=== PATIENT | male | born 1980 | race Caucasian/White ===

== ENCOUNTER 2017-06-23 09:48 | Inpatient (IN) | payer OTHER ==
[2017-06-23] MEDS ORDERED: ACETAMINOPHEN IV (For NPO) 1,000 MG in EMPTY BAG 1 BAG IVPB STA (10:19)
[2017-06-23] MEDS ORDERED: RX INFO: IV CONTRAST WAS GIVEN 1 EACH MISC MISCELLANE PRN (10:20)
--- NOTE | 2017-06-23 10:24 | ED ---
General Adult HPI - General Chief complaint: Fever Stated complaint: abd pain Time Seen by Provider: 06/23/17 10:15 Source: patient, family, RN notes reviewed Mode of arrival: ambulatory Limitations: no limitations - History of Present Illness Initial comments: Patient is a pleasant 36-year-old male presenting to the emergency department with fever. Fever started today. Patient has had headache for the past several days however headache is similar to his chronic migraines. Patient has had previous evaluation for this including computed tomography scan. Patient states this is a chronic problem for him. Patient does admit to having abdominal discomfort for the past few days. Abdominal discomfort is new. Patient has had nausea with emesis approximately 5 times, no emesis today. No constipation or diarrhea. No dysuria or hematuria. Abdominal discomfort is mostly the lower abdomen. Patient was given Motrin around 1 hour ago by [facility]. - Related Data Home Medications Medication Instructions Recorded Confirmed Citalopram Hydrobromide 40 mg PO DAILY 06/23/17 06/23/17 [Citalopram HBr] Gabapentin [Neurontin] 800 mg PO TID 06/23/17 06/23/17 Multivitamins, Thera [Multivitamin 1 tab PO DAILY 06/23/17 06/23/17 (formulary)] Pantoprazole [Protonix] 40 mg PO BID 06/23/17 06/23/17 busPIRone HCl [Buspar] 5 mg PO BID 06/23/17 06/23/17 Allergies Allergy/AdvReac Type Severity Reaction Status Date / Time Penicillins Allergy Unknown Verified 06/23/17 11:31 Review of Systems ROS Statement: Those systems with pertinent positive or pertinent negative responses have been documented in the HPI. ROS Other: All systems not noted in ROS Statement are negative. Constitutional: Reports: fever, chills Eyes: Denies: eye pain ENT: Denies: ear pain Respiratory: Denies: cough, dyspnea Cardiovascular: Denies: chest pain, palpitations Endocrine: Reports: fatigue Gastrointestinal: Reports: abdominal pain, nausea, vomiting. Denies: diarrhea, constipation Genitourinary: Reports: frequency. Denies: dysuria, hematuria Musculoskeletal: Denies: back pain Skin: Denies: rash Neurological: Denies: weakness Past Medical History Past Medical History: No Reported History History of Any Multi-Drug Resistant Organisms: None Reported Past Surgical History: Appendectomy, Orthopedic Surgery Additional Past Surgical History / Comment(s): right knee Past Psychological History: Anxiety, Depression, PTSD Smoking Status: Current every day smoker Past Alcohol Use History: Abuse Past Drug Use History: Marijuana General Exam Limitations: no limitations General appearance: alert, in no apparent distress Head exam: Present: atraumatic Eye exam: Present: normal appearance, PERRL ENT exam: Present: normal oropharynx Neck exam: Present: normal inspection Respiratory exam: Present: normal lung sounds bilaterally Cardiovascular Exam: Present: tachycardia GI/Abdominal exam: Present: soft, tenderness (Mild to moderate diffuse tenderness with some guarding), guarding, normal bowel sounds. Absent: distended, rebound, rigid, pulsatile mass Extremities exam: Present: normal inspection Neurological exam: Present: alert Psychiatric exam: Present: normal affect, normal mood Skin exam: Present: normal color Course Vital Signs 06/23/17 06/23/17 06/23/17 09:50 10:05 10:20 Temperature 103.1 F H Pulse Rate 112 H 105 H 104 H Respiratory 20 18 16 Rate Blood Pressure 119/80 127/77 129/74 O2 Sat by Pulse 98 95 95 Oximetry 06/23/17 06/23/17 10:35 10:50 Temperature 100.1 F H Pulse Rate 98 94 Respiratory 16 18 Rate Blood Pressure 131/71 127/65 O2 Sat by Pulse 95 96 Oximetry - Reevaluation(s) Reevaluation #1: 06/23/17 11:42 Patient does meet sepsis criteria diagnosed at 11:42 AM. Lactic acid was ordered. Blood cultures were ordered. IV antibiotics and fluid boluses have been ordered. Medical Decision Making - Medical Decision Making Patient reevaluated and resting comfortably in bed. Patient still has a abdominal tenderness, diffuse. Computed tomography scan shows no acute process. Patient does have evidence of pneumonia which can count for septic state. This could also be causing abdominal discomfort. Secondary to continued discomfort surgery will be consult. Dr. Parisi has been paged for admission for Dr. Vaca. Patient and family were updated on results and plan. - Lab Data Result diagrams: 06/23/17 10:19 06/23/17 10:19 Lab Results 06/23/17 06/23/17 06/23/17 Range/Units 10:19 10:19 10:19 WBC 21.7 H (3.8-10.6) k/uL RBC 4.72 (4.30-5.90) m/uL Hgb 14.8 (13.0-17.5) gm/dL Hct 42.3 (39.0-53.0) % MCV 89.6 (80.0-100.0) fL MCH 31.4 (25.0-35.0) pg MCHC 35.1 (31.0-37.0) g/dL RDW 12.9 (11.5-15.5) % Plt Count 204 (150-450) k/uL Neutrophils % 87 % Lymphocytes % 7 % Monocytes % 3 % Eosinophils % 2 % Basophils % 0 % Neutrophils # 18.9 H (1.3-7.7) k/uL Lymphocytes # 1.6 (1.0-4.8) k/uL Monocytes # 0.6 (0-1.0) k/uL Eosinophils # 0.3 (0-0.7) k/uL Basophils # 0.1 (0-0.2) k/uL PT (9.0-12.0) sec INR (<1.2) APTT (22.0-30.0) sec Sodium 131 L (137-145) mmol/L Potassium 4.1 (3.5-5.1) mmol/L Chloride 94 L (98-107) mmol/L Carbon Dioxide 22 (22-30) mmol/L Anion Gap 15 mmol/L BUN 14 (9-20) mg/dL Creatinine 1.00 (0.66-1.25) mg/dL Est GFR (MDRD) Af Amer >60 (>60 ml/min/1.73 sqM) Est GFR (MDRD) Non-Af >60 (>60 ml/min/1.73 sqM) Glucose 138 H (74-99) mg/dL Plasma Lactic Acid Riky 0.9 (0.7-2.0) mmol/L Calcium 9.2 (8.4-10.2) mg/dL Total Bilirubin 0.7 (0.2-1.3) mg/dL AST 23 (17-59) U/L ALT 39 (21-72) U/L Alkaline Phosphatase 90 (38-126) U/L Total Protein 7.2 (6.3-8.2) g/dL Albumin 4.2 (3.5-5.0) g/dL Urine Color Urine Appearance (Clear) Urine pH (5.0-8.0) Ur Specific [place] (1.001-1.035) Urine Protein (Negative) Urine Glucose (UA) (Negative) Urine Ketones (Negative) Urine Blood (Negative) Urine Nitrite (Negative) Urine Bilirubin (Negative) Urine Urobilinogen (<2.0) mg/dL Ur Leukocyte Esterase (Negative) 06/23/17 06/23/17 Range/Units 10:19 11:39 WBC (3.8-10.6) k/uL RBC (4.30-5.90) m/uL Hgb (13.0-17.5) gm/dL Hct (39.0-53.0) % MCV (80.0-100.0) fL MCH (25.0-35.0) pg MCHC (31.0-37.0) g/dL RDW (11.5-15.5) % Plt Count (150-450) k/uL Neutrophils % % Lymphocytes % % Monocytes % % Eosinophils % % Basophils % % Neutrophils # (1.3-7.7) k/uL Lymphocytes # (1.0-4.8) k/uL Monocytes # (0-1.0) k/uL Eosinophils # (0-0.7) k/uL Basophils # (0-0.2) k/uL PT 11.4 (9.0-12.0) sec INR 1.1 (<1.2) APTT 33.6 H (22.0-30.0) sec Sodium (137-145) mmol/L Potassium (3.5-5.1) mmol/L Chloride (98-107) mmol/L Carbon Dioxide (22-30) mmol/L Anion Gap mmol/L BUN (9-20) mg/dL Creatinine (0.66-1.25) mg/dL Est GFR (MDRD) Af Amer (>60 ml/min/1.73 sqM) Est GFR (MDRD) Non-Af (>60 ml/min/1.73 sqM) Glucose (74-99) mg/dL Plasma Lactic Acid Riky (0.7-2.0) mmol/L Calcium (8.4-10.2) mg/dL Total Bilirubin (0.2-1.3) mg/dL AST (17-59) U/L ALT (21-72) U/L Alkaline Phosphatase (38-126) U/L Total Protein (6.3-8.2) g/dL Albumin (3.5-5.0) g/dL Urine Color Light Yellow Urine Appearance Clear (Clear) Urine pH 6.5 (5.0-8.0) Ur Specific [place] 1.013 (1.001-1.035) Urine Protein Negative (Negative) Urine Glucose (UA) Negative (Negative) Urine Ketones Negative (Negative) Urine Blood Negative (Negative) Urine Nitrite Negative (Negative) Urine Bilirubin Negative (Negative) Urine Urobilinogen <2.0 (<2.0) mg/dL Ur Leukocyte Esterase Negative (Negative) - Radiology Data Radiology results: report reviewed (Computed tomography scan of the abdomen pelvis shows no acute process), image reviewed (Chest x-ray shows left upper lobe infiltrate) Critical Care Time Critical Care Time: Yes Total Critical Care Time: 32 Disposition Clinical Impression: Pneumonia, Sepsis Disposition: ADMITTED IP TO THIS [facility] Referrals: Jadon Rodriguez DO [Primary Care Provider] - 1-2 days Decision Time: 12:22
[2017-06-23] MEDS: SODIUM CHLORIDE 0.9% 500 ML IV SCH ×3 (10:26→10:52)
[2017-06-23 10:29] LABS: Basophils # (A) 0.1 k/uL (0-0.2); Basophils % (A) 0 %; CH 31.4; CHCM 35.2; Eosinophils # (A) 0.3 k/uL (0-0.7); Eosinophils % (A) 2 %; HCT 42.3 % (39.0-53.0); HDW 2.38; HGB 14.8 gm/dL (13.0-17.5); Luc % (Auto) 1; Lymphocytes # (A) 1.6 k/uL (1.0-4.8); Lymphocytes % (A) 7 %; MCH 31.4 pg (25.0-35.0); MCHC 35.1 g/dL (31.0-37.0); MCV 89.6 fL (80.0-100.0); Mean Platelet Volume 7.4; Monocytes # (A) 0.6 k/uL (0-1.0); Monocytes % (A) 3 %; Neutrophils # (A) 18.9 k/uL (1.3-7.7); Neutrophils % (A) 87 %; RBC 4.72 m/uL (4.30-5.90); RDW 12.9 % (11.5-15.5); WBC 21.7 k/uL (3.8-10.6); WBC (Perox) 20.76
[2017-06-23 10:37] LABS: INR 1.1 (<1.2); Partial Thromboplastin Time 33.6 sec (22.0-30.0); Prothrombin Time 11.4 sec (9.0-12.0)
[2017-06-23 10:40] LABS: ALT 39 U/L (21-72); AST 23 U/L (17-59); Alkaline Phosphatase 90 U/L (38-126); Anion Gap 15 mmol/L; Blood Urea Nitrogen 14 mg/dL (9-20); Calcium 9.2 mg/dL (8.4-10.2); Carbon Dioxide 22 mmol/L (22-30); Chloride 94 mmol/L (98-107); Glucose 138 mg/dL (74-99); Non-African American GFR(MDRD) >60 (>60 ml/min/1.73 sqM); Potassium 4.1 mmol/L (3.5-5.1); Sodium 131 mmol/L (137-145); Total Bilirubin 0.7 mg/dL (0.2-1.3); Total Protein 7.2 g/dL (6.3-8.2)
--- NOTE | 2017-06-23 11:22 | XR ---
EXAMINATION TYPE: XR chest 2V DATE OF EXAM: 06/23/2017 COMPARISON: NONE HISTORY: Fever, abdominal pain and lethargy TECHNIQUE: Frontal and lateral views of the chest are obtained. FINDINGS: There is airspace disease in the left upper lobe, no pleural effusion, or pneumothorax see n. The cardiac silhouette size is within normal limits. The osseous structures are intact. IMPRESSION: Left upper lobe pneumonia, follow-up to resolution to exclude mass.
--- NOTE | 2017-06-23 11:24 | CT ---
EXAMINATION TYPE: CT abdomen pelvis w con DATE OF EXAM: 06/23/2017 COMPARISON: NONE HISTORY: pelvic pain with fever CT DLP: 651.9 mGycm Automated exposure control for dose reduction was used. TECHNIQUE: Helical acquisition of images from the lung bases through the pelvis have been completed. CONTRAST: Performed without Oral Contrast and with IV Contrast, patient injected with 100 mL of Omnipaque 300. FINDINGS: LUNG BASES: No significant abnormality is appreciated. AORTA: No significant abnormality is appreciated. LIVER/GB: Low dense focus in the posterior right lobe towards the dome measures 1 cm in size and stat istically is likely to represent a cyst, gallbladder is unremarkable. PANCREAS: No significant abnormality is seen. SPLEEN: No significant abnormality is seen. ADRENALS: No significant abnormality is seen. KIDNEYS: No significant abnormality is seen. REPRODUCTIVE ORGANS: No significant abnormality is seen BOWEL: No significant abnormality is seen. FREE AIR: No Free Air visible. ASCITES: None visible. PELVIC ADENOPATHY: None visualized. RETROPERITONEAL ADENOPATHY: No Retroperitoneal Adenopathy visible. URINARY BLADDER: No significant abnormality is seen. OSSEOUS STRUCTURES: No significant abnormality is seen. IMPRESSION: NO ABNORMALITY EVIDENT TO ACCOUNT FOR PATIENT'S SYMPTOMS.
[2017-06-23] MEDS ORDERED: LEVOFLOXACIN 750MG-D5W PMX 750 MG in DEXTROSE/WATER 1 150ML.BAG IVPB STA (11:41)
[2017-06-23] MEDS ORDERED: AZTREONAM 2 GM in SODIUM CHLORIDE 0.9% 100 ML IVPB STA (11:41)
[2017-06-23] MEDS ORDERED: SODIUM CHLORIDE 0.9% 250 ML IV STA (11:41)
[2017-06-23] MEDS ORDERED: PNEUMONIA PROTOCOL UTILIZED 1 EACH MISC PO PRN (11:41)
[2017-06-23 11:57] LABS: Appearance,Urine Clear (Clear); Bilirubin,Urine Negative (Negative); Glucose,Urine (UA) Negative (Negative); Ketones,Urine Negative (Negative); Leukocyte Esterase,Urine Negative (Negative); Nitrite,Urine Negative (Negative); PH, Urine 6.5 (5.0-8.0); Protein,Urine Negative (Negative); Specific Gravity,Urine 1.013 (1.001-1.035); UA Billing (MACRO vs. MICRO) CHEM; Urobilinogen,Urine <2.0 mg/dL (<2.0)
[2017-06-23] MEDS ORDERED: NALOXONE 0.4 MG/ML 1 ML VIAL IV PRN (12:22)
[2017-06-23] MEDS ORDERED: THIAMINE 100 MG/ML 2 ML VIAL IM STA (12:43)
[2017-06-23] MEDS ORDERED: LORazepam 2 MG/ML SYRINGE IV PRN ×3 (12:43)
[2017-06-23] MEDS: SODIUM CHLORIDE 0.9% 1,000 ML IV SCH ×2 (13:22→20:57)
[2017-06-23 13:34] VITALS: BMI 25.0
[2017-06-23] MEDS ORDERED: HYDROmorphone 1 MG/ML 1 ML SYRINGE IVP PRN (15:16)
[2017-06-23] MEDS: GABAPENTIN 400 MG CAP PO SCH ×2 (15:57→20:58)
[2017-06-23] MEDS: PANTOPRAZOLE 40 MG TABLET PO SCH (15:58)
[2017-06-23] MEDS ORDERED: PNEUMOCOCCAL VACC-PNEUMOVAX 23 25 MCG/0.5 ML VIAL IM ONE (16:00)
[2017-06-23] MEDS: THIAMINE 100 MG TAB PO SCH (16:01)
--- NOTE | 2017-06-23 16:03 | P.GSCN ---
History of Present Illness Consult date: 06/23/17 Reason for Consult: abdominal pain History of present illness: 4 to clinic character moderate to severe made worse by moving about and coughing. It is associated by worsening cough nausea and vomiting with settled. There is a loss of appetite. No history of diarrhea or constipation. No history of hematemesis hematochezia or melena. No shave acholic stools no history of weight loss. He is unable to keep food down he is a loss of appetite. He has not had any such pain in the past. The pain does not radiate or shift. Review of Systems - Constitutional Reports anorexia, Reports chills, Reports fever, Reports malaise - EENT Eyes: denies blurred vision - Cardiovascular Denies claudication, Denies decreased exercise tolerance, Denies dyspnea on exertion - Respiratory Reports cough, Reports dyspnea - Gastrointestinal Reports as per HPI, Reports abdominal pain - Genitourinary Denies dysuria - Musculoskeletal Denies arm numbness/tingling, Denies fractures - Integumentary Denies acne, Denies boils, Denies brittle nails - Neurological Denies aphasia, Denies ataxia - Psychiatric Denies anhedonia, Denies anxiety - Endocrine Denies cold intolerance, Denies deepening of the voice, Denies excessive sweating - Hematologic/Lymphatic Denies easy bleeding, Denies easy bruising - Allergic/Immunologic Denies allergic rhinitis, Denies anaphylaxis Past Medical History Past Medical History: No Reported History History of Any Multi-Drug Resistant Organisms: None Reported Past Surgical History: Appendectomy, Orthopedic Surgery Additional Past Surgical History / Comment(s): right knee Past Anesthesia/Blood Transfusion Reactions: No Reported Reaction Past Psychological History: Anxiety, Depression, PTSD Smoking Status: Current every day smoker Past Alcohol Use History: Abuse Additional Past Alcohol Use History / Comment(s): attends AA, requests no narcotics on D/C Past Drug Use History: Marijuana - Past Family History Father Family Medical History: Liver Disease Medications and Allergies Home Medications Medication Instructions Recorded Confirmed Type Citalopram Hydrobromide 40 mg PO DAILY 06/23/17 06/23/17 History [Citalopram HBr] Gabapentin [Neurontin] 800 mg PO TID 06/23/17 06/23/17 History Multivitamins, Thera [Multivitamin 1 tab PO DAILY 06/23/17 06/23/17 History (formulary)] Pantoprazole [Protonix] 40 mg PO BID 06/23/17 06/23/17 History busPIRone HCl [Buspar] 5 mg PO BID 06/23/17 06/23/17 History Allergies Allergy/AdvReac Type Severity Reaction Status Date / Time Penicillins Allergy Unknown Verified 06/23/17 11:31 Surgical - Exam Vital Signs Temp Pulse Resp BP Pulse Ox 103.1 F H 112 H 20 119/80 98 06/23/17 09:50 06/23/17 09:50 06/23/17 09:50 06/23/17 09:50 06/23/17 09:50 Results - Labs 06/23/17 10:19 06/23/17 10:19 Abnormal Lab Results - Last 24 Hours (Table) 06/23/17 06/23/17 06/23/17 Range/Units 10:19 10:19 10:19 WBC 21.7 H (3.8-10.6) k/uL Neutrophils # 18.9 H (1.3-7.7) k/uL APTT 33.6 H (22.0-30.0) sec Sodium 131 L (137-145) mmol/L Chloride 94 L (98-107) mmol/L Glucose 138 H (74-99) mg/dL Diabetes panel 06/23/17 Range/Units 10:19 Sodium 131 L (137-145) mmol/L Potassium 4.1 (3.5-5.1) mmol/L Chloride 94 L (98-107) mmol/L Carbon Dioxide 22 (22-30) mmol/L BUN 14 (9-20) mg/dL Creatinine 1.00 (0.66-1.25) mg/dL Glucose 138 H (74-99) mg/dL Calcium 9.2 (8.4-10.2) mg/dL AST 23 (17-59) U/L ALT 39 (21-72) U/L Alkaline Phosphatase 90 (38-126) U/L Total Protein 7.2 (6.3-8.2) g/dL Albumin 4.2 (3.5-5.0) g/dL Calcium panel 06/23/17 Range/Units 10:19 Calcium 9.2 (8.4-10.2) mg/dL Albumin 4.2 (3.5-5.0) g/dL Pituitary panel 06/23/17 Range/Units 10:19 Sodium 131 L (137-145) mmol/L Potassium 4.1 (3.5-5.1) mmol/L Chloride 94 L (98-107) mmol/L Carbon Dioxide 22 (22-30) mmol/L BUN 14 (9-20) mg/dL Creatinine 1.00 (0.66-1.25) mg/dL Glucose 138 H (74-99) mg/dL Calcium 9.2 (8.4-10.2) mg/dL Adrenal panel 06/23/17 Range/Units 10:19 Sodium 131 L (137-145) mmol/L Potassium 4.1 (3.5-5.1) mmol/L Chloride 94 L (98-107) mmol/L Carbon Dioxide 22 (22-30) mmol/L BUN 14 (9-20) mg/dL Creatinine 1.00 (0.66-1.25) mg/dL Glucose 138 H (74-99) mg/dL Calcium 9.2 (8.4-10.2) mg/dL Total Bilirubin 0.7 (0.2-1.3) mg/dL AST 23 (17-59) U/L ALT 39 (21-72) U/L Alkaline Phosphatase 90 (38-126) U/L Total Protein 7.2 (6.3-8.2) g/dL Albumin 4.2 (3.5-5.0) g/dL - Imaging Additional studies: CT scan of abd and pevlis is normal, an d the CXR show left upper lobe pneumonia Assessment and Plan (1) Abdominal pain Status: Acute (2) Pneumonia Status: Acute (3) Sepsis Status: Acute Plan: Patient is 69-year-old male who presented with abdominal pain. His labs and chest x-ray suggest pneumonia with possible sepsis secondary to that. His abdominal pain is nonspecific. Although his abdomen is tender do not believe there is any guarding rebound or tenderness. No masses or hernias appreciated. At this time I do not believe his abdominal pain is surgical in origin. I will continue to follow the patient with you thank you very much for consult
[2017-06-23] MEDS: AZTREONAM 2 GM in SODIUM CHLORIDE 0.9% 100 ML IVPB SCH ×2 (17:13→23:34)
--- NOTE | 2017-06-23 17:58 | HP ---
CHIEF COMPLAINT: Fever, abdominal pain, cough. HISTORY OF PRESENT ILLNESS: This is a 36-year-old gentleman with a past medical history of significant medical problems including history of binge drinking, EtOH history, anxiety, depression, PTSD; being followed by Dr. Rodriguez in the outpatient setting. He is complaining of recurrent fever for the last several days. The patient also complains of vague diffuse abdominal pain. The patient also had some cough also. The patient also has history of headache. Patient came to [facility] and admitted for further evaluation and treatment. The patient also had some vomiting. The patient's chest x-ray showed evidence of left-sided pneumonia. There is no history of any hematochezia or melena at this time. PAST MEDICAL HISTORY: History of appendectomy, DJD, history of anxiety of depression, PTSD. MEDICATIONS: 1. BuSpar 5 mg p.o. b.i.d. 2. Protonix 40 mg b.i.d. 3. Multivitamins. 4. Neurontin 800 mg t.i.d. 5. Celexa 40 mg a day. ALLERGIES: PENICILLIN. FAMILY HISTORY: History of liver disease in the family. SOCIAL HISTORY: History of smoking, alcohol and THC. REVIEW OF SYSTEMS: ENT: No diminished hearing or vision. CARDIOVASCULAR: No angina or palpitation. RESPIRATORY: As mentioned earlier. GI: As mentioned earlier. : No dysuria. NERVOUS SYSTEM: No numbness or weakness. IMMUNOLOGY/ALLERGY: No asthma, hayfever. MUSCULOSKELETAL: As mentioned earlier. HEMATOLOGY: No history of anemia. ENDOCRINE: No history of diabetes or hypothyroidism. CONSTITUTIONAL: Negative PSYCHIATRIC: As mentioned earlier. PHYSICAL EXAMINATION: Alert and oriented x3. Pulse 76, blood pressure 105/61, respirations 19, temperature 96.7, pulse ox 98% on 2 liters. HEENT: Conjunctivae normal. Oral mucosa moist. NECK: No jugular venous distention. No thyroid enlargement, no lymph node enlargement. CARDIOVASCULAR: S1/.S2. RESPIRATIONS: Diminished breath sounds at the bases. A few scattered rhonchi and crackles. Expiratory wheezing also present. ABDOMEN: Soft, nontender. No mass palpable. LEGS: No edema, no swelling. NERVOUS SYSTEM: Higher function as mentioned. Moves all four limbs. No focal weakness. LYMPHATICS. No lymph node palpable in neck or axillae. SKIN: No rash. LABS: WBC 21.2, hemoglobin 14.8, sodium 131, chloride 94, glucose 138. Chest x -ray noted. ASSESSMENT: 1. Acute left upper lobe pneumonia, possibly aspiration, possibly gram negative sepsis. 2. Abdominal pain, most likely due to gastritis. 3. Increased WBC. 4. Hyponatremia. 5. History of EtOH. 6. History of degenerative joint disease. 7. Anxiety, depression and posttraumatic stress disorder. 8. History of nicotine dependence. 9. History of THC. RECOMMENDATION AND DISCUSSION: This 36-year-old gentleman presented with multiple complex medical issues. We will monitor the patient closely, continue the current medication, continue symptomatic treatment. Otherwise, I recommend bronchodilators, empiric antibiotics, cultures. We will recommend pulmonary consultation. Surgery has also been consulted. Guarded prognosis because of multiple complex medical issues. See orders. MTDD
[2017-06-23] MEDS: IPRATROPIUM-ALBUTEROL 3 ML NEB INHALATION SCH (19:40)
[2017-06-23] MEDS: ACETAMINOPHEN TAB 325 MG TAB PO PRN (19:49)
[2017-06-23] MEDS: busPIRone HCl 5 MG TAB PO SCH (20:58)
[2017-06-23] MEDS: FAMOTIDINE 20 MG TAB PO SCH (20:58)
[2017-06-23] MEDS: HEPARIN SODIUM,PORCINE 5,000 UNIT/ML 1 ML VIAL SQ SCH (20:59)
[2017-06-23] MEDS: TEMAZEPAM 15 MG CAP PO PRN (20:59)
[2017-06-24] MEDS: IBUPROFEN 400 MG TAB PO PRN ×3 (00:16→22:16)
[2017-06-24] MEDS: ACETAMINOPHEN TAB 325 MG TAB PO PRN (06:39)
[2017-06-24] MEDS: SODIUM CHLORIDE 0.9% 1,000 ML IV SCH ×2 (06:41→16:30)
[2017-06-24] MEDS: IPRATROPIUM-ALBUTEROL 3 ML NEB INHALATION SCH ×3 (07:35→20:56)
[2017-06-24] MEDS: NICOTINE 14MG/24HR PATCH TRANSDERM SCH (08:15)
[2017-06-24] MEDS: HEPARIN SODIUM,PORCINE 5,000 UNIT/ML 1 ML VIAL SQ SCH ×2 (08:15→21:16)
[2017-06-24] MEDS: PANTOPRAZOLE 40 MG TABLET PO SCH ×2 (08:15→16:29)
[2017-06-24] MEDS: FAMOTIDINE 20 MG TAB PO SCH (08:15)
[2017-06-24] MEDS: GABAPENTIN 400 MG CAP PO SCH ×3 (08:15→21:16)
[2017-06-24] MEDS: CITALOPRAM HYDROBROMIDE 20 MG TAB PO SCH (08:15)
[2017-06-24] MEDS: busPIRone HCl 5 MG TAB PO SCH ×2 (08:15→21:17)
[2017-06-24] MEDS: AZTREONAM 2 GM in SODIUM CHLORIDE 0.9% 100 ML IVPB SCH ×3 (08:16→23:22)
[2017-06-24 08:29] LABS: Basophils % (A) 0 %; CH 31.2; CHCM 34.1; Eosinophils # (A) 0.1 k/uL (0-0.7); Eosinophils % (A) 1 %; HCT 37.9 % (39.0-53.0); HDW 2.47; HGB 12.7 gm/dL (13.0-17.5); Luc # (Auto) 0.13; Luc % (Auto) 1; Lymphocytes # (A) 1.1 k/uL (1.0-4.8); Lymphocytes % (A) 9 %; MCHC 33.7 g/dL (31.0-37.0); MCV 92.1 fL (80.0-100.0); Mean Platelet Volume 8.1; Monocytes # (A) 0.4 k/uL (0-1.0); Monocytes % (A) 3 %; Neutrophils # (A) 11.1 k/uL (1.3-7.7); Neutrophils % (A) 86 %; RBC 4.11 m/uL (4.30-5.90); RDW 13.7 % (11.5-15.5); WBC 12.9 k/uL (3.8-10.6); WBC (Perox) 11.88
[2017-06-24 08:42] LABS: ALT 24 U/L (21-72); AST 22 U/L (17-59); Alkaline Phosphatase 69 U/L (38-126); Anion Gap 9 mmol/L; Blood Urea Nitrogen 9 mg/dL (9-20); Calcium 8.2 mg/dL (8.4-10.2); Carbon Dioxide 25 mmol/L (22-30); Chloride 103 mmol/L (98-107); Glucose 143 mg/dL (74-99); Non-African American GFR(MDRD) >60 (>60 ml/min/1.73 sqM); Sodium 137 mmol/L (137-145); Total Bilirubin 0.3 mg/dL (0.2-1.3); Total Protein 5.9 g/dL (6.3-8.2)
[2017-06-24] MEDS ORDERED: MULTIVITAMINS, THERA 1 EACH TAB PO SCH (09:00)
--- NOTE | 2017-06-24 09:10 | XR ---
EXAMINATION TYPE: XR chest 2V DATE OF EXAM: 06/24/2017 COMPARISON: Prior chest x-ray 06/23/2017 HISTORY: Pneumonia TECHNIQUE: Frontal and lateral views of the chest are obtained. FINDINGS: Left upper lobe airspace disease persists. No evident effusion. IMPRESSION: findings compatible with left upper lobe pneumonia, follow-up to resolution.
[2017-06-24] MEDS: THIAMINE 100 MG TAB PO SCH ×2 (11:57→16:29)
[2017-06-24] MEDS: MULTIVITAMINS, THERA 1 EACH TAB PO SCH (11:57)
[2017-06-24] MEDS ORDERED: LEVOFLOXACIN 750MG-D5W PMX 750 MG in DEXTROSE/WATER 1 150ML.BAG IVPB SCH (12:00)
--- NOTE | 2017-06-24 13:03 | CT ---
EXAMINATION TYPE: CT brain wo con DATE OF EXAM: 06/24/2017 COMPARISON: NONE HISTORY: headache, c/o head pressure CT DLP: 963.6 mGycm. Automated Exposure Control for Dose Reduction was Utilized. TECHNIQUE: CT scan of the head is performed without contrast. FINDINGS: There is no acute intracranial hemorrhage, mass effect, or midline shift identified. The ventricles and sulci are within normal limits in size. The globes are intact and the visualized sin uses are clear. IMPRESSION: No acute intracranial hemorrhage, mass effect, or midline shift is seen.
--- NOTE | 2017-06-24 13:32 | P.PN ---
Subjective Date of service 06/24/2017. Personal being dictated for Dr. Parisi. Interval history: This a 36-year-old gentleman admitted with acute left upper lobe pneumonia, abdominal pain, hyponatremia and multiple other medical issues. Maintained on nebulized bronchodilators, antibiotics, leukocytosis improving. Maintaining O2 sats of 98% on 2 L nasal cannula. Loose,Nonproductive cough, complaining of headache. CT of head reported no acute intracranial hemorrhage, mass effect or midline shift. Chest x-ray reporting left upper lobe pneumonia without effusion . Abdominal pain evaluated by surgery, nonsurgical. Significant improvement in sodium. Review of systems: GENERAL: Reports generalized fatigue. HEENT: Complains of headache , no focal deficits. Denies any dizziness or lightheadedness. Respiratory: Complains of dyspnea with nonproductive cough. Cardiac: Denies any chest pain, palpitations. GI: nausea, no vomiting, or diarrhea.diet intake improving. C/O abdominal tenderness worsened with cough : Denies any dysuria. Psychiatry: Denies any anxiety or depression. Active Medications Acetaminophen (Tylenol Tab) 650 mg PO Q6HR PRN PRN Reason: Mild Pain or Fever > 100.5 Last Admin: 06/24/17 06:39 Dose: 650 mg Albuterol/Ipratropium (Duoneb 0.5 Mg-3 Mg/3 Ml Soln) 3 ml INHALATION RT-TID [facility] Last Admin: 06/24/17 07:35 Dose: 3 ml Buspirone HCl (Buspar) 5 mg PO BID [facility] Last Admin: 06/24/17 08:15 Dose: 5 mg Citalopram Hydrobromide (Celexa) 40 mg PO DAILY [facility] Last Admin: 06/24/17 08:15 Dose: 40 mg Gabapentin (Neurontin) 800 mg PO TID [facility] Last Admin: 06/24/17 08:15 Dose: 800 mg Heparin Sodium (Porcine) (Heparin) 5,000 unit SQ Q12HR [facility] Last Admin: 06/24/17 08:15 Dose: 5,000 unit Aztreonam 2 gm/ Sodium (Chloride) 100 mls @ 100 mls/hr IVPB Q8HR [facility] Stop: 07/02/17 18:01 Last Admin: 06/24/17 08:16 Dose: 100 mls/hr Sodium Chloride (Saline 0.9%) 1,000 mls @ 110 mls/hr IV .Q9H6M [facility] Last Admin: 06/24/17 06:41 Dose: 110 mls/hr Ibuprofen (Motrin) 400 mg PO Q6HR PRN PRN Reason: Mild Pain or Fever > 100.5 Last Admin: 06/24/17 00:16 Dose: 400 mg Levofloxacin (Levaquin) 750 mg PO DAILY@1200 [facility] Stop: 07/04/17 12:01 Lorazepam (Ativan) 1 mg IV Q2HR PRN PRN Reason: CIWA 8 or 9 Lorazepam (Ativan) 1 mg IV Q1HR PRN PRN Reason: CIWA 10 to 15 Lorazepam (Ativan) 2 mg IV Q10M PRN PRN Reason: CIWA 16 or higher Stop: 07/23/17 12:44 Miscellaneous Information (Rx Info: Iv Contrast Was Given) 1 each MISCELLANE DAILY PRN PRN Reason: Per Protocol Stop: 06/25/17 10:20 Last Admin: 06/23/17 10:48 Dose: 1 each Miscellaneous Information (Pneumonia Protocol Utilized) 1 each PO ONCE PRN PRN Reason: Per Protocol Multivitamins (Theragran) 1 each PO DAILY@1200 [facility] Last Admin: 06/24/17 11:57 Dose: 1 each Naloxone HCl (Narcan) 0.2 mg IV Q2M PRN PRN Reason: Opioid Reversal Nicotine (Habitrol 14mg/24hr Patch) 1 patch TRANSDERM DAILY [facility] Last Admin: 06/24/17 08:15 Dose: 1 patch Pantoprazole Sodium (Protonix) 40 mg PO AC-BID [facility] Last Admin: 06/24/17 08:15 Dose: 40 mg Temazepam (Restoril) 15 mg PO HS PRN PRN Reason: Insomnia Last Admin: 06/23/17 20:59 Dose: 15 mg Thiamine HCl (Vitamin B-1) 100 mg PO BID@1200,1700 [facility] Last Admin: 06/24/17 11:57 Dose: 100 mg Objective - Vital Signs Vital signs: Vital Signs Temp 99.2 F 06/24/17 07:00 Pulse 76 06/24/17 07:46 Resp 18 06/24/17 07:00 BP 118/66 06/24/17 07:00 Pulse Ox 99 06/24/17 07:00 Intake & Output 06/23/17 06/24/1717 18:59 06:59 18:59 Intake Total 250 Output Total 650 1500 Balance -400 -1500 Weight 74.843 kg Intake: IV 100 Aztreonam 2 gm In Sodium 100 Chloride 0.9% 100 ml @ 100 mls/hr IVPB [facility] Rx#:[id number] Intake, IV Titration 150 Amount Levofloxacin 750Mg-D5w 150 Pmx 750 mg In Dextrose/ Water 1 150ml.bag @ 100 mls/hr IVPB [facility] Rx#: [id number] Output: Urine 650 1500 Other: # Voids 1 2 - Exam PHYSICAL EXAM: VITAL SIGNS: [As above] GENERAL: Sitting up in bed, tired appearing HEENT: [Pupils equal conjunctiva normal.] NECK: [Supple, no JVD] RESPIRATORY EFFORT:[ Mildly increased] LUNGS: [Bilateral bases diminished, scattered rhonchi, fine expiratory wheezing and bibasilar crackles. CARDIOVASCULAR[ regular S1 and S2, no murmurs rubs or gallops, no edema] GI: [Abdomen soft, nontender, positive bowel sounds. No guarding, no rigidity.] PSYCH: [Alert and oriented -3, mood and affect normal.] NEURO: No focal deficits, moves all 4 extremities, strength and sensation grossly intact. - Labs CBC & Chem 7: 06/24/17 07:39 06/24/17 07:39 Labs: Abnormal Lab Results - Last 24 Hours (Table) 06/24/17 06/24/17 Range/Units 07:39 07:39 WBC 12.9 H (3.8-10.6) k/uL RBC 4.11 L (4.30-5.90) m/uL Hgb 12.7 L (13.0-17.5) gm/dL Hct 37.9 L (39.0-53.0) % Neutrophils # 11.1 H (1.3-7.7) k/uL Glucose 143 H (74-99) mg/dL Calcium 8.2 L (8.4-10.2) mg/dL Total Protein 5.9 L (6.3-8.2) g/dL Albumin 3.2 L (3.5-5.0) g/dL Microbiology - Last 24 Hours (Table) 06/23/17 10:19 Blood Culture - Preliminary Blood No Growth after 24 hours 06/23/17 11:39 Urine Culture - Preliminary Urine,Voided Assessment and Plan Plan: 1. Acute left upper lobe pneumonia, possibly aspiration, possibly gram- negative sepsis. 2. [ Abdominal pain, most likely related to gastritis, nonsurgical]. 3. [ Leukocytosis]. 4. [ Hyponatremia, improving]. 5. [ Anxiety, depression and posttraumatic stress disorder]. Plan: Continue on current medication regime ,monitoring and symptomatic treatment. Maintain antibiotics, nebulized bronchodilators and PPI. Aggressive pulmonary toileting. Increase ambulation as tolerated. Cultures closely. Follow electrolytes closely with repeat labs ordered for a.m. Further recommendations to follow. The impression and plan of care has been dictated as directed. : I performed a H&P examination of this patient and discussed the same with the dictator. I agree with the dictator's note. Any additional findings/opinions/ etc. will be noted.
[2017-06-24] MEDS: TEMAZEPAM 15 MG CAP PO PRN (21:17)
--- NOTE | 2017-06-24 22:09 | PN ---
This is a 36 -year-old male presented to the emergency department with a fever. The patient had fever beginning either the day before or the day of admission. The day of admission was June 23. In addition, he had complaints of headache. He just was not feeling well. He had complaints of increasing pain with deep breathing. It was a pleuritic pain, sharp. Mostly in the left chest. He also had a wet congested cough. No urinary complaints. Minimal coughing up of phlegm. No coughing up of blood. The patient was admitted with a diagnosis of pneumonia and pleurisy. The patient seems to be doing better. States he was feeling better today when I saw him in consultation. His home medications include Citalopram, Neurontin, Multivitamins, Protonix, BuSpar. ALLERGIES ARE PENICILLIN. Medical history is not too remarkable. I suspect he has either anxiety or depression which is why he is on the medications he is on, possible some acid reflux disease as well. Surgical history includes appendectomy and orthopedic procedures. SOCIAL HISTORY: Positive for ongoing tobacco use. He does use marijuana. He does abuse alcohol. Denies other elicit drugs. FAMILY HISTORY: Noncontributory. He apparently also suffers from PTSD. REVIEW OF SYSTEMS: CONSTITUTIONAL: Fever. NEUROLOGICAL: Negative. HEENT: Negative. CARDIOVASCULAR: Negative. PULMONARY: Shortness of breath, chest congestion, cough, chest pain which is pleuritic in nature. GI/: Negative. HEMATOLOGICAL: Negative. RHEUMATOLOGICAL: Negative. ENDOCRINOLOGICAL: Negative. DERMATOLOGICAL: All negative. Temperature is 99.2 down from 100.9, heart rate is 76. Respiratory rate is 18. Blood pressure 118/66. Mean 83. 2 L saturation 99%. Appears in no acute distress. HEENT: Grossly unremarkable. Mucous membranes are moist. No oral lesions. Neck supple. Full range of motion. No adenopathy. No thyromegaly. Neck veins are flat. Cardiovascular examination reveals regular rate and rhythm. S1, S2 normal. Heart rate in the mid 70s. Lungs reveal some coarse rhonchi. Cannot take a deep breath without wincing. Congested wet sounding cough. No wheezes, no crackles. Abdomen soft. Bowel sounds heard. Skin without rash. Neurological examination brief but nonfocal. Extremities intact. Revealed no evidence of edema, cyanosis or clubbing. Chest x-ray shows left sided pneumonia, upper lobe. Does not appear to be abutting the pleura though. Labs are reviewed. White count 12.9, hemoglobin 12.7, hematocrit 37.9, platelet count 168,000. PT/INR normal. PTT normal. Sodium and potassium, Chloride, CO2 all normal. Anion gap normal. BUN and creatinine normal. Urine was negative. Microbiology negative for blood or urine. Medications are reviewed. ASSESSMENT: 1. Community acquired pneumonia, with underlying pleurisy. 2. History of anxiety, depression. 3. PTSD. 4. Gastroesophageal reflux disease. PLAN: The patient could be discharged home on oral antibiotics. We will continue to follow. The patient will receive pain medication or nonsteroidal anti-inflammatory drugs for his pleuritic chest pain. Combination of some oral Prednisone and some nonsteroidal anti-inflammatory drugs should take care of that. He should be treated for at least 10 days. He should have a follow-up chest x-ray to make sure there is resolution. He should be counseled about the importance of smoking cessation, not using marijuana and cutting back on his alcohol. Additional recommendations and suggestions are forthcoming. We will continue to follow. MENDY
[2017-06-25] MEDS: SODIUM CHLORIDE 0.9% 1,000 ML IV SCH ×3 (05:15→21:01)
[2017-06-25] MEDS: IPRATROPIUM-ALBUTEROL 3 ML NEB INHALATION SCH ×3 (07:10→20:45)
[2017-06-25] MEDS: ACETAMINOPHEN TAB 325 MG TAB PO PRN (07:20)
[2017-06-25] MEDS ORDERED: traMADol 50 MG TAB PO PRN (07:58)
[2017-06-25] MEDS: GABAPENTIN 400 MG CAP PO SCH ×3 (08:05→21:00)
[2017-06-25] MEDS: PANTOPRAZOLE 40 MG TABLET PO SCH ×2 (08:05→16:27)
[2017-06-25] MEDS: NICOTINE 14MG/24HR PATCH TRANSDERM SCH (08:05)
[2017-06-25] MEDS: CITALOPRAM HYDROBROMIDE 20 MG TAB PO SCH (08:05)
[2017-06-25] MEDS: AZTREONAM 2 GM in SODIUM CHLORIDE 0.9% 100 ML IVPB SCH ×2 (08:05→16:27)
[2017-06-25] MEDS: busPIRone HCl 5 MG TAB PO SCH ×2 (08:05→21:51)
[2017-06-25] MEDS: HEPARIN SODIUM,PORCINE 5,000 UNIT/ML 1 ML VIAL SQ SCH ×2 (08:06→21:00)
[2017-06-25] MEDS: KETOROLAC 30 MG/ML 1 ML VIAL IVP PRN ×2 (08:15→13:25)
[2017-06-25 08:21] LABS: Anion Gap 8 mmol/L; Blood Urea Nitrogen <2 mg/dL (9-20); Calcium 7.9 mg/dL (8.4-10.2); Carbon Dioxide 24 mmol/L (22-30); Chloride 104 mmol/L (98-107); Glucose 147 mg/dL (74-99); Non-African American GFR(MDRD) >60 (>60 ml/min/1.73 sqM); Potassium 3.6 mmol/L (3.5-5.1); Sodium 136 mmol/L (137-145)
[2017-06-25] MEDS: THIAMINE 100 MG TAB PO SCH ×2 (12:40→16:27)
[2017-06-25] MEDS: MULTIVITAMINS, THERA 1 EACH TAB PO SCH (12:40)
[2017-06-25] MEDS: LEVOFLOXACIN 750 MG TAB PO SCH (12:40)
--- NOTE | 2017-06-25 14:59 | PN ---
This is a 36-year-old healthy male except for anxiety, depression, PTSD and GERD who was admitted with a diagnosis of pneumonia involving the left upper lobe. He also had some significant pleurisy and pleuritic chest pain. Clinically, doing better. Still with a slight temperature of 99.2 Other than that, doing reasonably well. The patient could be discharged home on some nonsteroidal anti-inflammatory drugs, a brief prednisone burst and taper and appropriate antibiotics for community-acquired pneumonia with followup in the outpatient setting. Anyways, the patient is feeling better. Currently, temperature is 99.2. Heart rate is 80, respiratory rate 16, blood pressure is 138/79, mean 98, room air saturation 97% to 99%. Appears in no acute distress. HEENT examination is grossly unremarkable. Mixed membranes are moist. No oral lesions. ( ) is normal. NECK: Supple, full range of motion. No adenopathy or thyromegaly. Neck veins are ( ). Cardiovascular examination reveals regular rhythm and rate, S1, S2, normal, no S3, S4 or murmur. Lungs reveal a few scattered rhonchi. He still has some wincing when he takes a deep breath. No crackles. A few scattered rhonchi. Abdomen is soft, bowel sounds are heard. No masses or tenderness. His extremities are intact. No cyanosis, clubbing or edema. The skin is without rash. A few tattoos are noted. Neurologic examination is brief but not focal. Labs are reviewed, sodium 136, potassium 3.6, chloride is 104, CO2 is 24, BUN and creatinine were less than 2 and 0.59. The rest of the labs look okay. Microbiologically, all cultures dated thus far is negative. The only chest x- ray done was 1 done on admission and 1 done yesterday. Another one can be repeated tomorrow if he is still here. ASSESSMENT: 1. Community-acquired pneumonia with associated underlying pleurisy. 2. History of anxiety, depression. 3. Posttraumatic stress disorder. 4. Gastroesophageal reflux disease. PLAN: From my perspective, the patient could be discharged home with antibiotics, steroids and nonsteroidal anti-inflammatory drugs. The patient clinically looks a lot better. He is still having pain when he takes a deep breath. He should follow up with somebody to make sure there is clearing of the infiltrate in the left upper lobe. No additional recommendations are made other than smoking cessation counseling. [facility]
--- NOTE | 2017-06-25 16:46 | P.PN ---
Subjective Personal being dictated for Dr. Parisi. Interval history: This a 36-year-old gentleman admitted with acute left upper lobe pneumonia, abdominal pain, hyponatremia and multiple other medical issues. Maintained on nebulized bronchodilators, antibiotics, leukocytosis improving. Maintaining O2 sats of 98% on 2 L nasal cannula. Loose,Nonproductive cough, complaining of headache. CT of head reported no acute intracranial hemorrhage, mass effect or midline shift. Chest x-ray reporting left upper lobe pneumonia without effusion . Abdominal pain evaluated by surgery, nonsurgical. Significant improvement in sodium. 06/25/17 persistent pleuritic pain, receiving Toradol, Ultram. Do not sleep well. Currently reports no headache T-max 100.9. Evaluated by pulmonary with recommendations noted Review of systems: GENERAL: Reports generalized fatigue. Did not sleep well last night HEENT: headache improving, no focal deficits. Denies any dizziness or lightheadedness. Respiratory: Complains of dyspnea with nonproductive cough. Cardiac: Denies any chest pain, palpitations. GI: nausea, no vomiting, or diarrhea.diet intake improving. C/O abdominal tenderness worsened with cough : Denies any dysuria. Psychiatry: Denies any anxiety or depression. Active Medications Generic Name Dose Route Start Last Admin Trade Name Freq PRN Reason Stop Dose Admin Acetaminophen 650 mg 06/23/17 12:22 06/25/17 07:20 Tylenol Tab PO 650 mg Q6HR PRN Administration Mild Pain or Fever > 100.5 Albuterol/Ipratropium 3 ml 06/23/17 20:00 06/25/17 13:32 Duoneb 0.5 Mg-3 Mg/3 Ml Soln INHALATION 3 ml RT-TID [facility] Administration Buspirone HCl 5 mg 06/23/17 21:00 06/25/17 08:05 Buspar PO 5 mg BID [facility] Administration Citalopram Hydrobromide 40 mg 06/24/17 09:00 06/25/17 08:05 Celexa PO 40 mg DAILY [facility] Administration Gabapentin 800 mg 06/23/17 16:00 06/25/17 16:27 Neurontin PO 800 mg TID [facility] Administration Heparin Sodium (Porcine) 5,000 unit 06/23/17 21:00 06/25/17 08:06 Heparin SQ 5,000 unit Q12HR [facility] Administration Aztreonam 2 gm/ Sodium 100 mls @ 100 mls/hr 06/23/17 18:00 06/25/17 16:27 Chloride IVPB 07/02/17 18:01 100 mls/hr Q8HR [facility] Administration Sodium Chloride 1,000 mls @ 110 mls/hr 06/23/17 12:30 06/25/17 09:56 Saline 0.9% IV 110 mls/hr .Q9H6M [facility] Administration Ibuprofen 400 mg 06/23/17 12:22 06/24/17 22:16 Motrin PO 400 mg Q6HR PRN Administration Mild Pain or Fever > 100.5 Ketorolac Tromethamine 15 mg 06/25/17 07:57 06/25/17 13:25 Toradol IVP 06/29/17 07:57 15 mg Q6HR PRN Administration Severe Pain Levofloxacin 750 mg 06/25/17 12:00 06/25/17 12:40 Levaquin PO 07/04/17 12:01 750 mg DAILY@1200 [facility] Administration Lorazepam 1 mg 06/23/17 12:43 Ativan IV Q2HR PRN CIWA 8 or 9 Lorazepam 1 mg 06/23/17 12:43 Ativan IV Q1HR PRN CIWA 10 to 15 Lorazepam 2 mg 06/23/17 12:43 Ativan IV 07/23/17 12:44 Q10M PRN CIWA 16 or higher Miscellaneous Information 1 each 06/23/17 11:41 Pneumonia Protocol Utilized PO ONCE PRN Per Protocol Multivitamins 1 each 06/24/17 12:00 06/25/17 12:40 Theragran PO 1 each DAILY@1200 [facility] Administration Naloxone HCl 0.2 mg 06/23/17 12:22 Narcan IV Q2M PRN Opioid Reversal Nicotine 1 patch 06/24/17 09:00 06/25/17 08:05 Habitrol 14mg/24hr Patch TRANSDERM 1 patch DAILY [facility] Administration Pantoprazole Sodium 40 mg 06/23/17 17:30 06/25/17 16:27 Protonix PO 40 mg AC-BID [facility] Administration Temazepam 15 mg 06/23/17 15:16 06/24/17 21:17 Restoril PO 15 mg HS PRN Administration Insomnia Thiamine HCl 100 mg 06/23/17 17:00 06/25/17 16:27 Vitamin B-1 PO 100 mg BID@1200,1700 [facility] Administration Tramadol HCl 50 mg 06/25/17 07:58 Ultram PO QID PRN Moderate Pain Objective - Vital Signs Vital signs: Vital Signs Temp 99.2 F 06/25/17 08:21 Pulse 92 06/25/17 07:26 Resp 16 06/25/17 07:00 BP 138/79 06/25/17 07:00 Pulse Ox 97 06/25/17 07:00 Intake & Output 06/24/17 06/25/17 06/25/17 18:59 06:59 18:59 Intake Total 980 Output Total 1400 850 Balance 980 -1400 -850 Intake: Intake, IV Titration 980 Amount Aztreonam 2 gm In Sodium 100 Chloride 0.9% 100 ml @ 100 mls/hr IVPB Q8HR [facility] Rx#:[id number] Sodium Chloride 0.9% 1, 880 000 ml @ 110 mls/hr IV . Q9H6M [facility] Rx#:[id number] Output: Urine 1400 850 Other: # Voids 4 0 # Bowel Movements 1 1 - Exam PHYSICAL EXAM: VITAL SIGNS: [As above] GENERAL: Sitting up in bed, tired appearing HEENT: [Pupils equal conjunctiva normal. Oral mucosa moist] NECK: [Supple, no JVD] RESPIRATORY EFFORT:[ Mildly increased] LUNGS: [Bilateral bases diminished, scattered rhonchi, no wheezing, no crackles CARDIOVASCULAR[ regular S1 and S2, no murmurs rubs or gallops, no edema] GI: [Abdomen soft, nontender, positive bowel sounds. No guarding, no rigidity.] PSYCH: [Alert and oriented -3, mood and affect normal.] NEURO: No focal deficits, moves all 4 extremities, strength and sensation grossly intact. - Labs CBC & Chem 7: 06/24/17 07:39 06/25/17 07:48 Labs: Abnormal Lab Results - Last 24 Hours (Table) 06/25/17 Range/Units 07:48 Sodium 136 L (137-145) mmol/L BUN <2 L (9-20) mg/dL Creatinine 0.59 L (0.66-1.25) mg/dL Glucose 147 H (74-99) mg/dL Calcium 7.9 L (8.4-10.2) mg/dL Microbiology - Last 24 Hours (Table) 06/23/17 11:39 Urine Culture - Final Urine,Voided 06/23/17 10:19 Blood Culture - Preliminary Blood No Growth after 24 hours Assessment and Plan Plan: 1. Acute left upper lobe pneumonia, possibly aspiration, possibly gram- negative sepsis. 2. [ Abdominal pain, most likely related to gastritis, nonsurgical]. 3. [ Leukocytosis]. 4. [ Hyponatremia, improving]. 5. [ Anxiety, depression and posttraumatic stress disorder]. Plan: Continue on current medication regime ,monitoring and symptomatic treatment. Maintain antibiotics, nebulized bronchodilators and PPI. F/U CXR ordered and pending.Increase ambulation as tolerated. Smoking cessation readdressed. Discharge planning in progress for tomorrow. Further recommendations to follow. The impression and plan of care has been dictated as directed. : I performed a H&P examination of this patient and discussed the same with the dictator. I agree with the dictator's note. Any additional findings/opinions/ etc. will be noted.
[2017-06-25] MEDS ORDERED: TEMAZEPAM 15 MG CAP PO PRN (17:18)
--- NOTE | 2017-06-25 17:43 | XR ---
EXAMINATION TYPE: XR chest 2V DATE OF EXAM: 06/25/2017 COMPARISON: 06/24/2017 HISTORY: Cough TECHNIQUE: Frontal and lateral views of the chest are obtained. FINDINGS: There is a wedge-shaped area of consolidation involving the anterior segment of the left u pper lobe area of involvement is increased slightly compared to last exam. There is no heart failure. Right lung is clear. There is no pleural effusion. There are air bronchograms. IMPRESSION: Left upper lobe pneumonia appears worse than last exam and follow-up is recommended to s how clearing.
[2017-06-25] MEDS ORDERED: OLANZapine 5 MG TAB PO PRN (17:50)
[2017-06-26] MEDS: AZTREONAM 2 GM in SODIUM CHLORIDE 0.9% 100 ML IVPB SCH ×2 (00:25→08:22)
[2017-06-26] MEDS: SODIUM CHLORIDE 0.9% 1,000 ML IV SCH (05:13)
[2017-06-26] MEDS: IPRATROPIUM-ALBUTEROL 3 ML NEB INHALATION SCH ×2 (07:25→13:25)
[2017-06-26 07:28] VITALS: BP 132/85; RESP 16; TEMP 98.1
[2017-06-26] MEDS: KETOROLAC 30 MG/ML 1 ML VIAL IVP PRN (08:22)
[2017-06-26] MEDS: NICOTINE 14MG/24HR PATCH TRANSDERM SCH (08:30)
[2017-06-26] MEDS: busPIRone HCl 5 MG TAB PO SCH (08:31)
[2017-06-26] MEDS: CITALOPRAM HYDROBROMIDE 20 MG TAB PO SCH (08:31)
[2017-06-26] MEDS: GABAPENTIN 400 MG CAP PO SCH (08:31)
[2017-06-26] MEDS: PANTOPRAZOLE 40 MG TABLET PO SCH (08:32)
[2017-06-26] MEDS: HEPARIN SODIUM,PORCINE 5,000 UNIT/ML 1 ML VIAL SQ SCH (08:32)
[2017-06-26 09:16] LABS: Basophils % (A) 0 %; CH 31.1; CHCM 33.5; Eosinophils # (A) 0.3 k/uL (0-0.7); Eosinophils % (A) 4 %; HCT 34.8 % (39.0-53.0); HGB 11.3 gm/dL (13.0-17.5); Luc # (Auto) 0.11; Luc % (Auto) 2; Lymphocytes # (A) 1.1 k/uL (1.0-4.8); Lymphocytes % (A) 16 %; MCH 30.4 pg (25.0-35.0); MCHC 32.5 g/dL (31.0-37.0); MCV 93.5 fL (80.0-100.0); Mean Platelet Volume 8.2; Monocytes # (A) 0.2 k/uL (0-1.0); Monocytes % (A) 3 %; Neutrophils # (A) 5.2 k/uL (1.3-7.7); Neutrophils % (A) 75 %; RBC 3.72 m/uL (4.30-5.90); RDW 14.2 % (11.5-15.5); WBC 6.9 k/uL (3.8-10.6); WBC (Perox) 7.24
[2017-06-26 09:31] LABS: Anion Gap 7 mmol/L; Blood Urea Nitrogen 2 mg/dL (9-20); Calcium 8.3 mg/dL (8.4-10.2); Carbon Dioxide 28 mmol/L (22-30); Chloride 104 mmol/L (98-107); Glucose 122 mg/dL (74-99); Non-African American GFR(MDRD) >60 (>60 ml/min/1.73 sqM); Potassium 3.8 mmol/L (3.5-5.1); Sodium 139 mmol/L (137-145)
--- NOTE | 2017-06-26 10:31 | P.PN ---
Subjective Progress note dated 06/26/2017 36-year-old male healthy with a history of anxiety/depression posttraumatic stress disorder and gastroesophageal reflux disease. He is a smoker. Developed pneumonia, community-acquired, left upper lobe. He also had a component of pleurisy. He feeling much better today wants be discharged home. He denies any shortness of breath pain in the chest cough wheezing or phlegm production. He is here with his . I do investment counselor him about the importance of smoking cessation. He'll also need follow-up with his primary doctor and follow-up chest x-ray down the road. He apparently sees Petrona Quiroga at the [facility]. She is a nurse practitioner. Objective - Vital Signs Vital signs: Vital Signs Temp 98.1 F 06/26/17 07:00 Pulse 86 06/26/17 07:36 Resp 16 06/26/17 07:00 BP 132/85 06/26/17 07:00 Pulse Ox 97 06/26/17 07:00 Intake & Output 06/25/17 06/26/17 06/26/17 18:59 06:59 18:59 Output Total 1900 900 Balance -1900 -900 Output: Urine 1900 900 Other: Voiding Method Toilet # Voids 1 0 # Bowel Movements 0 - Exam No acute distress, oriented 3 HEENT examination is grossly unremarkable. Mucous membranes are moist. No oral lesions. Neck supple. Full range of motion. No adenopathy or thyromegaly. Cardiovascular examination reveals regular rhythm rate. S1-S2 normal. No murmur. Lungs reveal few scattered mild rhonchi. No wheezes or crackles. Breath sounds are equal. Abdomen soft bowel sounds are heard. Extremities are intact. No cyanosis clubbing or edema. Skin without rash. Neurologic examination is nonfocal. - Labs CBC & Chem 7: 06/26/17 08:41 06/26/17 08:41 Labs: Abnormal Lab Results - Last 24 Hours (Table) 06/26/17 06/26/17 Range/Units 08:41 08:41 RBC 3.72 L (4.30-5.90) m/uL Hgb 11.3 L (13.0-17.5) gm/dL Hct 34.8 L (39.0-53.0) % BUN 2 L (9-20) mg/dL Creatinine 0.64 L (0.66-1.25) mg/dL Glucose 122 H (74-99) mg/dL Calcium 8.3 L (8.4-10.2) mg/dL Microbiology - Last 24 Hours (Table) 06/25/17 16:30 Gram Stain - Preliminary Sputum Sputum Culture - Preliminary 06/23/17 10:19 Blood Culture - Preliminary Blood No Growth after 48 hours Assessment and Plan (1) Pneumonia Status: Acute (2) Sepsis Status: Acute Plan: The patient can be discharged home. I'll leave that up to the primary service. She go home on antibiotics. We did investment counselor the patient's about the importance of smoking cessation. He'll need a follow-up with his primary caregiver and a follow-up chest x-ray down the road. Additional recommendations suggestions are forthcoming. Prognosis is guarded. Time with Patient: Less than 30
[2017-06-26] MEDS: LEVOFLOXACIN 750 MG TAB PO SCH (11:50)
[2017-06-26] MEDS: MULTIVITAMINS, THERA 1 EACH TAB PO SCH (11:50)
[2017-06-26] MEDS: THIAMINE 100 MG TAB PO SCH (11:50)
[2017-06-26 13:29] VITALS: PULSE 85
--- NOTE | 2017-06-27 17:31 | DS ---
FINAL DIAGNOSES: 1. Acute left upper lobe pneumonia, possibly aspiration, possibly Gram-negative with sepsis, present on admission. 2. Abdominal pain, possibly gastritis. 3. Leukocytosis. 4. History of ethanol. 5. Anxiety, depression. DISCHARGE DISPOSITION: Patient will be discharged in stable condition with guarded prognosis. Dr. Berman cleared the patient for discharge. Total time taken 35 minutes. HISTORY OF PRESENT ILLNESS: This 36-year-old gentleman was admitted with pneumonia and multiple other medical problems, including sepsis. Patient was treated with antibiotics. Dr. Berman saw the patient. The patient improved significantly. The most recent chest x-ray was reviewed. Dr. Berman recommended close outpatient followup. ETOH cessation also has been recommended to the patient. The patient will be discharged in stable condition with guarded prognosis with the following advice and medications: 1. Diet is regular. 2. Activity limited until followup. 3. No ETOH. 4. Attend ETOH rehab. 5. No smoking. Discharge medications are recommended as before: 6. Tylenol 500 mg q.4 p.r.n. 7. Ventolin 2 puffs q.i.d. p.r.n. 8. BuSpar 5 mg p.o. b.i.d. 9. Celexa 40 mg p.o. daily. 10. Folic acid 1 mg daily. 11. Neurontin 800 mg t.i.d. 12. Levaquin 750 mg p.o. daily for 10 days. 13. Multivitamins 1 p.o. daily. 14. Habitrol 14 daily. 15. Protonix 40 b.i.d. 16. Thiamine 100 mg p.o. b.i.d. 17. Follow up with Dr. Berman as recommended. [facility]
== END 2017-06-26 14:30 | disposition home or self-care (01) | DRG 871 ==
LOC: EC 09:48 → 4MS4W 12:22
PROVIDERS: ADMIT Hospitalist; ATTEND Hospitalist
DX: A41.50 Gram-negative sepsis, unspecified (principal); J69.0 Pneumonitis due to inhalation of food and vomit; E87.1 Hypo-osmolality and hyponatremia; F10.10 Alcohol abuse, uncomplicated; F12.90 Cannabis use, unspecified, uncomplicated; F17.200 Nicotine dependence, unspecified, uncomplicated; F32.9 Major depressive disorder, single episode, unspecified; F43.10 Post-traumatic stress disorder, unspecified; K21.9 Gastro-esophageal reflux disease without esophagitis; K29.70 Gastritis, unspecified, without bleeding; M19.90 Unspecified osteoarthritis, unspecified site; F41.9 Anxiety disorder, unspecified; Z79.899 Other long term (current) drug therapy; Z88.0 Allergy status to penicillin
CPT/HCPCS: 36415; 70450; 71020; 74177; 80048; 80053; 81003; 83605; 85025; 85610; 85730; 87040; 87070; 87086; 87205; 90732; 94640; 96361; 96365; 96375; 99285

== ENCOUNTER 2018-06-22 10:39 | Emergency (ER) | payer OTHER ==
[2018-06-22 10:52] VITALS: BP 135/78; PULSE 89; RESP 18; TEMP 98.1
[2018-06-22] MEDS ORDERED: PROPARACAINE 0.5% OPHTH DROPS 15 ML BTL RIGHT EYE STA (10:58)
[2018-06-22] MEDS ORDERED: KETOROLAC 30 MG/ML 1 ML VIAL IM STA (11:02)
--- NOTE | 2018-06-22 11:08 | ED ---
Eye Problem HPI - General Chief complaint: Eye Problems Stated complaint: rt eye injury Time Seen by Provider: 06/22/18 10:49 Source: patient Mode of arrival: ambulatory Limitations: no limitations - History of Present Illness Initial comments: 37-year-old male patient percents to the emergency department today for evaluation of carranza surrounding the right eye. Patient states he was working on his 's car yesterday when some hot rubber fell onto his face. Patient states that he immediately cleaned the area and rinsed it while in the shower. Patient states when he woke up this morning the eyelid was swollen and he could barely see. Patient doesn't believe that the rubber fell onto the actual globe. Patient states that the area is uncomfortable. He is reporting some blurred vision. States his last tetanus vaccine was one year ago. Denies any other injuries. Patient denies any headache, neck pain, back pain, chest pain, shortness of breath, dizziness, weakness, abdominal pain, nausea, vomiting, or difficulties with bowel movements or urination. - Related Data Home Medications Medication Instructions Recorded Confirmed Citalopram Hydrobromide 40 mg PO DAILY 06/23/17 06/23/17 [Citalopram HBr] Gabapentin [Neurontin] 800 mg PO TID 06/23/17 06/23/17 Multivitamins, Thera [Multivitamin 1 tab PO DAILY 06/23/17 06/23/17 (formulary)] Pantoprazole [Protonix] 40 mg PO BID 06/23/17 06/23/17 busPIRone HCl [Buspar] 5 mg PO BID 06/23/17 06/23/17 Previous Rx's Medication Instructions Recorded Acetaminophen [Tylenol] 500 mg PO Q4-6H PRN #1 tab 06/26/17 Albuterol Inhaler [Ventolin Hfa 2 puff INHALATION Q6HR #1 inhaler 06/26/17 Inhaler] Folic Acid 1 mg PO DAILY #30 tablet 06/26/17 Levofloxacin [Levaquin] 750 mg PO DAILY@1200 #10 tab 06/26/17 Nicotine 14Mg/24Hr Patch [Habitrol] 1 patch TRANSDERM DAILY #30 patch 06/26/17 Thiamine [Vitamin B-1] 100 mg PO BID@1200,1700 #30 tab 06/26/17 Cephalexin [Keflex] 500 mg PO Q6H #28 cap 06/22/18 Allergies Allergy/AdvReac Type Severity Reaction Status Date / Time Penicillins Allergy Unknown Verified 06/22/18 10:49 Review of Systems ROS Statement: Those systems with pertinent positive or pertinent negative responses have been documented in the HPI. ROS Other: All systems not noted in ROS Statement are negative. Past Medical History Past Medical History: No Reported History History of Any Multi-Drug Resistant Organisms: None Reported Past Surgical History: Appendectomy, Orthopedic Surgery Additional Past Surgical History / Comment(s): right knee Past Anesthesia/Blood Transfusion Reactions: No Reported Reaction Past Psychological History: Anxiety, Depression, PTSD Smoking Status: Current every day smoker Past Alcohol Use History: None Reported, Abuse Past Drug Use History: None Reported, Marijuana - Past Family History Father Family Medical History: Liver Disease General Exam Limitations: no limitations General appearance: alert, in no apparent distress, other (This is a well- developed, well-nourished adult male patient in no acute distress. Vital signs upon presentation are temperature 98.1F, pulse 89, respirations 18, blood pressure 135/78, pulse ox 96% on room air.) Eye exam: Present: PERRL, EOMI, periorbital swelling (Right uppr and lower lid swelling. ), other (Superficial partial thickness carranza to the right eyelid and right lower eye lid. There is purulent drainage coming from the inner canthus. Fluorescein stain with Wood's lamp examination was performed to the right eye, there is no evidence of globe injury.). Absent: normal appearance, scleral icterus, conjunctival injection Neck exam: Present: normal inspection. Absent: tenderness, meningismus, lymphadenopathy Respiratory exam: Present: normal lung sounds bilaterally. Absent: respiratory distress, wheezes, rales, rhonchi, stridor Cardiovascular Exam: Present: regular rate, normal rhythm, normal heart sounds. Absent: systolic murmur, diastolic murmur, rubs, gallop, clicks Neurological exam: Present: alert, oriented X3, CN II-XII intact Psychiatric exam: Present: normal affect, normal mood Skin exam: Present: warm, dry, intact, normal color. Absent: rash Course Vital Signs 06/22/18 10:49 Temperature 98.1 F Pulse Rate 89 Respiratory 18 Rate Blood Pressure 135/78 O2 Sat by Pulse 96 Oximetry Medical Decision Making - Medical Decision Making 37-year-old male patient presented to the emergency department today for evaluation of right eye carranza. Physical examination did reveal superficial partial-thickness carranza to the right upper and lower eyelids. Fluorescein stain with Wood's lamp examination was performed and showed no evidence of globe injury. Visual acuity was performed was 20/25 on the left and 20/40 on the right. Patient was educated regarding wound care around the eye. He is instructed to apply cool compresses. He will be given a prescription for Keflex to prevent infection. He is instructed to follow-up with his primary care physician for recheck in 1-2 days. Return parameters discussed in detail. He verbalizes understanding and agrees with this plan. Disposition Clinical Impression: Superficial partial thickness burn of face Disposition: HOME SELF-CARE Condition: Good Instructions: Superficial Burn (ED) Additional Instructions: Apply Neosporin to wounds around the right eye. Apply cool compresses to help with swelling. Complete antibiotic prescription in full. Follow-up with your primary care physician for recheck of the wound in 1-2 days. Return here immediately for any new, worsening, or concerning symptoms. Prescriptions: Cephalexin [Keflex] 500 mg PO Q6H #28 cap Is patient prescribed a controlled substance at d/c from ED?: No Referrals: [facility] [Primary Care Provider] - 1-2 days Time of Disposition: 11:27
== END 2018-06-22 11:30 | disposition home or self-care (01) ==
LOC: EC 10:39
DX: T26.01XA Burn of right eyelid and periocular area, initial encounter (principal); F32.9 Major depressive disorder, single episode, unspecified; F41.9 Anxiety disorder, unspecified; F17.200 Nicotine dependence, unspecified, uncomplicated; Z79.899 Other long term (current) drug therapy; Z88.0 Allergy status to penicillin; X19.XXXA Contact with other heat and hot substances, initial encounter; W20.8XXA Other cause of strike by thrown, projected or falling object, initial encounter; Y93.89 Activity, other specified
CPT/HCPCS: 99283; 96372; J1885

== ENCOUNTER 2018-09-09 09:14 | Emergency (ER) | payer OTHER ==
[2018-09-09 09:38] VITALS: RESP 18
[2018-09-09] MEDS ORDERED: ONDANSETRON 4 MG/2 ML VIAL IVP STA (10:28)
[2018-09-09] MEDS ORDERED: MORPHINE SULFATE 4 MG/ML SYRINGE IV STA ×2 (10:28→12:32)
[2018-09-09] MEDS ORDERED: SODIUM CHLORIDE 0.9% 1,000 ML IV STA (10:28)
--- NOTE | 2018-09-09 10:37 | ED ---
General Adult HPI - General Chief complaint: Abdominal Pain Stated complaint: abd pain Time Seen by Provider: 09/09/18 10:18 Source: patient, RN notes reviewed Mode of arrival: ambulatory Limitations: no limitations - History of Present Illness Initial comments: Patient 37-year-old male presented to the emergency department today with chief complaint of abdominal pain that began 3 days ago. Patient states it's a sharp pain located in the middle of the abdomen. Patient admits that he nor his the pain first when he was cutting the grass. States it's worse with bumps. Patient does admit to increased vomiting. States not diarrhea. Patient does admit to decreased appetite. Denies any other complaints. Patient denies any recent fever, chills, shortness of breath, chest pain, back pain, nausea or vomiting, numbness or tingling, dysuria or hematuria, constipation or diarrhea, headaches or visual changes, or any other complaints. - Related Data Home Medications Medication Instructions Recorded Confirmed Multivitamins, Thera [Multivitamin 1 tab PO DAILY 06/23/17 09/09/18 (formulary)] Pantoprazole [Protonix] 40 mg PO BID 06/23/17 09/09/18 Albuterol Inhaler [Ventolin Hfa 2 puff INHALATION Q6HR PRN 09/09/18 09/09/18 Inhaler] Ativan (Unknown Dose) 1 tab PO DAILY PRN 09/09/18 09/09/18 Escitalopram [Lexapro] 20 mg PO DAILY 09/09/18 09/09/18 Mirtazapine 30 mg PO HS 09/09/18 09/09/18 Prazosin HCl 10 mg PO HS 09/09/18 09/09/18 QUEtiapine FUMARATE 200 mg PO HS 09/09/18 09/09/18 traZODone HCL [Desyrel] 50 mg PO BID 09/09/18 09/09/18 traZODone HCL [Desyrel] 200 mg PO HS 09/09/18 09/09/18 Allergies Allergy/AdvReac Type Severity Reaction Status Date / Time nickel Allergy Rash/Hives Verified 09/09/18 10:27 Penicillins Allergy Unknown Verified 09/09/18 10:27 Review of Systems ROS Statement: Those systems with pertinent positive or pertinent negative responses have been documented in the HPI. ROS Other: All systems not noted in ROS Statement are negative. Past Medical History Past Medical History: No Reported History History of Any Multi-Drug Resistant Organisms: None Reported Past Surgical History: Appendectomy, Orthopedic Surgery Additional Past Surgical History / Comment(s): right knee Past Anesthesia/Blood Transfusion Reactions: No Reported Reaction Past Psychological History: Anxiety, Depression, PTSD Smoking Status: Current every day smoker Past Alcohol Use History: None Reported Past Drug Use History: None Reported - Past Family History Father Family Medical History: Liver Disease General Exam - General Exam Comments Initial Comments: General: The patient is awake and alert, in no distress, and does not appear acutely ill. Eye: There is normal conjunctiva bilaterally. No signs of icterus. Ears, nose, mouth and throat: There are moist mucous membranes and no oral lesions. Neck: The neck is supple, there is no tenderness or JVD. Cardiovascular: There is a regular rate and rhythm. No murmur, rub or gallop is appreciated. Respiratory: Lungs are clear to auscultation, respirations are non-labored, breath sounds are equal. No wheezes, stridor, rales, or rhonchi. Gastrointestinal: Abdomen soft on palpation. He does have tenderness both left and right lower quadrant. No rebound, guarding or CVA tenderness. Musculoskeletal: Normal ROM, no tenderness. Sensation intact. Strength 5/5. Pulses equal bilaterally 2+. Neurological: A&O x 3. CN II-XII intact, There are no obvious motor or sensory deficits. Coordination appears grossly intact. Speech is normal. Skin: Skin is warm and dry and no rashes or lesions are noted. Psychiatric: Cooperative, appropriate mood & affect, normal judgment. Limitations: no limitations Course Vital Signs 09/09/18 09/09/18 09/09/18 09:36 10:52 11:30 Temperature 97.8 F Pulse Rate 86 67 69 Respiratory 18 18 18 Rate Blood Pressure 118/78 126/75 128/83 O2 Sat by Pulse 98 97 97 Oximetry 09/09/18 14:07 Temperature Pulse Rate 77 Respiratory 18 Rate Blood Pressure 129/83 O2 Sat by Pulse 100 Oximetry Medical Decision Making - Medical Decision Making Patient's labs been reviewed does show 19,000 white count. Remaining labs reviewed unremarkable. Patient's urinalysis is clear. Patient's CT the abdomen and pelvis was unremarkable showing no acute amount. Chest x-ray was performed as he has had cough and congestion was negative. Ultrasound of the scrotum and pelvis performed. Shows no evidence of testicular torsion. This shows a left-sided hydrocele. No acute abnormalities. Case was discussed's he went physician Dr. Schmidt. Patient at this time is resting comfortably. States can follow-up the family doctor tomorrow. Advised that should return to emergency room for any fever or increase or worsening of pain. States understanding and is in agreement. - Lab Data Result diagrams: 09/09/18 10:30 09/09/18 10:30 Lab Results 09/09/18 09/09/18 09/09/18 Range/Units 10:30 10:30 10:55 WBC 19.1 H (3.8-10.6) k/uL RBC 4.35 (4.30-5.90) m/uL Hgb 13.6 (13.0-17.5) gm/dL Hct 40.3 (39.0-53.0) % MCV 92.7 (80.0-100.0) fL MCH 31.2 (25.0-35.0) pg MCHC 33.7 (31.0-37.0) g/dL RDW 12.5 (11.5-15.5) % Plt Count 209 (150-450) k/uL Neutrophils % 87 % Lymphocytes % 9 % Monocytes % 2 % Eosinophils % 1 % Basophils % 0 % Neutrophils # 16.6 H (1.3-7.7) k/uL Lymphocytes # 1.7 (1.0-4.8) k/uL Monocytes # 0.4 (0-1.0) k/uL Eosinophils # 0.3 (0-0.7) k/uL Basophils # 0.0 (0-0.2) k/uL Sodium 140 (137-145) mmol/L Potassium 4.4 (3.5-5.1) mmol/L Chloride 108 H (98-107) mmol/L Carbon Dioxide 25 (22-30) mmol/L Anion Gap 7 mmol/L BUN 10 (9-20) mg/dL Creatinine 0.79 (0.66-1.25) mg/dL Est GFR (CKD-EPI)AfAm >90 (>60 ml/min/1.73 sqM) Est GFR (CKD-EPI)NonAf >90 (>60 ml/min/1.73 sqM) Glucose 99 (74-99) mg/dL Calcium 8.9 (8.4-10.2) mg/dL Total Bilirubin 0.4 (0.2-1.3) mg/dL AST 30 (17-59) U/L ALT 24 (21-72) U/L Alkaline Phosphatase 70 (38-126) U/L Total Protein 6.4 (6.3-8.2) g/dL Albumin 3.8 (3.5-5.0) g/dL Amylase 50 (30-110) U/L Lipase 44 (23-300) U/L Urine Color Yellow Urine Appearance Clear (Clear) Urine pH 7.5 (5.0-8.0) Ur Specific [place] 1.007 (1.001-1.035) Urine Protein Negative (Negative) Urine Glucose (UA) Negative (Negative) Urine Ketones Negative (Negative) Urine Blood Negative (Negative) Urine Nitrite Negative (Negative) Urine Bilirubin Negative (Negative) Urine Urobilinogen <2.0 (<2.0) mg/dL Ur Leukocyte Esterase Negative (Negative) Disposition Clinical Impression: Abdominal pain, Hydrocele Disposition: HOME SELF-CARE Condition: Good Instructions: Abdominal Pain (ED) Additional Instructions: Please follow-up the family doctor tomorrow as discussed. Please return here to the emergency room fever, increase or worsen the pain or any other concerns. Is patient prescribed a controlled substance at d/c from ED?: No Referrals: [facility] [Primary Care Provider] - 1-2 days Time of Disposition: 14:44
[2018-09-09 10:54] LABS: Basophils % (A) 0 %; Eosinophils # (A) 0.3 k/uL (0-0.7); Eosinophils % (A) 1 %; HCT 40.3 % (39.0-53.0); HGB 13.6 gm/dL (13.0-17.5); Lymphocytes # (A) 1.7 k/uL (1.0-4.8); Lymphocytes % (A) 9 %; MCH 31.2 pg (25.0-35.0); MCHC 33.7 g/dL (31.0-37.0); MCV 92.7 fL (80.0-100.0); Mean Platelet Volume 7.5; Monocytes # (A) 0.4 k/uL (0-1.0); Monocytes % (A) 2 %; Neutrophils # (A) 16.6 k/uL (1.3-7.7); Neutrophils % (A) 87 %; Platelet Count 209 k/uL (150-450); RBC 4.35 m/uL (4.30-5.90); RDW 12.5 % (11.5-15.5); WBC 19.1 k/uL (3.8-10.6)
[2018-09-09 11:03] LABS: ALT 24 U/L (21-72); AST 30 U/L (17-59); Albumin 3.8 g/dL (3.5-5.0); Alkaline Phosphatase 70 U/L (38-126); Amylase 50 U/L (30-110); Anion Gap 7 mmol/L; Blood Urea Nitrogen 10 mg/dL (9-20); Calcium 8.9 mg/dL (8.4-10.2); Carbon Dioxide 25 mmol/L (22-30); Chloride 108 mmol/L (98-107); Glucose 99 mg/dL (74-99); Lipase 44 U/L (23-300); Potassium 4.4 mmol/L (3.5-5.1); Sodium 140 mmol/L (137-145); Total Bilirubin 0.4 mg/dL (0.2-1.3); Total Protein 6.4 g/dL (6.3-8.2)
[2018-09-09 11:17] LABS: Appearance,Urine Clear (Clear); Bilirubin,Urine Negative (Negative); Blood,Urine Negative (Negative); Color,Urine Yellow; Glucose,Urine (UA) Negative (Negative); Ketones,Urine Negative (Negative); Leukocyte Esterase,Urine Negative (Negative); Nitrite,Urine Negative (Negative); PH, Urine 7.5 (5.0-8.0); Protein,Urine Negative (Negative); Specific Gravity,Urine 1.007 (1.001-1.035); Urobilinogen,Urine <2.0 mg/dL (<2.0)
--- NOTE | 2018-09-09 11:43 | CT ---
EXAMINATION TYPE: CT abdomen pelvis w con DATE OF EXAM: 09/09/2018 COMPARISON: Previous dated 06/23/2017 HISTORY: Abdomen pain CT DLP: 712.9 mGycm Automated exposure control for dose reduction was used. TECHNIQUE: Helical acquisition of images from the lung bases through the pelvis have been completed. CONTRAST: Performed without Oral Contrast and with IV Contrast, patient injected with 100 mL of Isovue 300. FINDINGS: LUNG BASES: No significant abnormality is appreciated. AORTA: No significant abnormality is appreciated. LIVER/GB: No significant abnormality is appreciated. PANCREAS: No significant abnormality is seen. SPLEEN: No significant abnormality is seen. ADRENALS: No significant abnormality is seen. KIDNEYS: No significant abnormality is seen. REPRODUCTIVE ORGANS: No significant abnormality is seen BOWEL: No significant abnormality is seen. The appendix is not seen. FREE AIR: No Free Air visible. ASCITES: None visible. PELVIC ADENOPATHY: None visualized. RETROPERITONEAL ADENOPATHY: No Retroperitoneal Adenopathy visible. URINARY BLADDER: No significant abnormality is seen. OSSEOUS STRUCTURES: No significant abnormality is seen. IMPRESSION: NO ABNORMALITY EVIDENT TO ACCOUNT FOR PATIENT'S SYMPTOMS.
--- NOTE | 2018-09-09 12:11 | XR ---
EXAMINATION TYPE: XR chest 2V DATE OF EXAM: 09/09/2018 COMPARISON: 06/25/2017 TECHNIQUE: PA and lateral views submitted. HISTORY: Cough FINDINGS: The lungs are clear and there is no pneumothorax, pleural effusion, or focal pneumonia. IMPRESSION: 1. No acute process.
--- NOTE | 2018-09-09 14:12 | US ---
EXAMINATION TYPE: US pelvic limited DATE OF EXAM: 09/09/2018 COMPARISON: CT CLINICAL HISTORY: Pain. low abd pain Pelvis scanned per order. Bladder distends normally, bilateral jets seen, no definite abnormality not ed. No free fluid. IMPRESSION: No abnormality noted.:
--- NOTE | 2018-09-09 14:14 | US ---
EXAMINATION TYPE: US scrotum with doppler. Grayscale and color Doppler Duplex imaging performed of t ryanne scrotum. DATE OF EXAM: 09/09/2018 COMPARISON: CT CLINICAL HISTORY: Pain. low abd pain EXAM MEASUREMENTS: TESTICLES: Right Testicle: 4.8 x 2.2 x 3.2 cm cm Left Testicle: 4.0 x 2.0 x 2.8 cm EPIDIDYMIS HEAD: Right Epididymis: not seen cm Left Epididymis: not seen cm Doppler performed to assess for testicular vascularity; good bilateral color flow and waveforms are s een. There is no evidence of testicular torsion. Presence of hydroceles: small amount of fluid around left testicle Presence of varicoceles: none appreciated IMPRESSION: 1. Small left hydrocele. The epididymis was not seen bilaterally and therefore cannot be evaluated.
[2018-09-09] MEDS ORDERED: ACET/COD 300 MG/30 MG STARTER PACK 6 TAB BTL PO STA (15:06)
[2018-09-09 15:13] VITALS: BP 133/95; PULSE 64; TEMP 97.9
== END 2018-09-09 15:13 | disposition home or self-care (01) ==
LOC: EC 09:14
DX: N43.3 Hydrocele, unspecified (principal); R10.9 Unspecified abdominal pain; R11.10 Vomiting, unspecified; R63.8 Other symptoms and signs concerning food and fluid intake; R05 Cough; R09.89 Other specified symptoms and signs involving the circulatory and respiratory systems; F32.9 Major depressive disorder, single episode, unspecified; F41.9 Anxiety disorder, unspecified; F17.200 Nicotine dependence, unspecified, uncomplicated; Z88.0 Allergy status to penicillin; Z91.048 Other nonmedicinal substance allergy status; Z79.899 Other long term (current) drug therapy; Z83.79 Family history of other diseases of the digestive system
CPT/HCPCS: 36415; 80053; 82150; 83690; 85025; 81003; 71046; 93975; 76870; 76857; 74177; 99284; 96374; 96375; 96376; 96361 ×2; J2270; J2405; Q9967

== ENCOUNTER → 2019-07-23 | Outpatient (CLI) | payer OTHER ==
--- NOTE | 2019-07-24 00:05 | MR ---
EXAMINATION TYPE: MR knee RT wo/w con DATE OF EXAM: 07/23/2019 COMPARISON: None HISTORY: Rt knee pain, prev surgery 2010 TECHNIQUE: Multiplanar, multisequence images of the right knee is performed with 7 mL intravenous Lucio avist gadolinium contrast. FINDINGS: The anterior and posterior cruciate ligaments are intact. There is metallic artifact defect in the pa tella related to previous surgery. There is a mild knee joint effusion. The joint spaces are fairly n ormal. There is linear defect in the medial femoral condyle consistent with previous surgery. The med ial and lateral menisci appear intact. The collateral ligaments are intact. Contrast images show no p athologic enhancement. There is no evidence for fracture. I see no bony destructive process. IMPRESSION: Previous surgery with metal artifact. No evidence of ligamentous or meniscal tear. Normal joint space s. Small knee joint effusion.
== END ==
LOC: RADMRIMAIN 15:58
PROVIDERS: ATTEND Physician Assistant Medical
DX: M25.461 Effusion, right knee (principal); Z98.890 Other specified postprocedural states
CPT/HCPCS: 73723; A9585

== ENCOUNTER → 2019-11-05 | Outpatient (CLI) | payer OTHER ==
--- NOTE | 2019-11-05 17:17 | CT ---
EXAMINATION TYPE: CT abdomen pelvis wo/w con DATE OF EXAM: 11/05/2019 COMPARISON: Prior CT 09/09/2018 HISTORY: Abdominal pain, diarrhea, chronic. Unexplained weight loss. CT DLP: 719.70 mGycm Automated exposure control for dose reduction was used. TECHNIQUE: Helical acquisition of images was performed from the lung bases through the pelvis. CONTRAST: Performed with Oral Contrast and with IV Contrast, patient injected with 100 mL of Isovue 300. FINDINGS: LUNG BASES: No significant abnormality is appreciated. LIVER/GB: No significant interval change is appreciated. PANCREAS: No significant abnormality is seen. SPLEEN: No significant abnormality is seen. ADRENALS: No significant abnormality is seen. KIDNEYS: No significant interval change is seen. FREE AIR: No free air is visualized. RETROPERITONEAL ADENOPATHY: None visualized REPRODUCTIVE ORGANS: No significant abnormality is seen URINARY BLADDER: No significant abnormality is seen. PELVIC ADENOPATHY: None visualized. OSSEOUS STRUCTURES: No significant abnormality is seen. BOWEL: Fecal debris present throughout the distribution of the colon. OTHER: Contrast has not coursed entirely bowel. IMPRESSION: CORRELATE FOR FECAL STASIS. EXAM SOMEWHAT LIMITED.
== END | disposition home or self-care (01) ==
LOC: RADCTMAIN 14:00
DX: R10.30 Lower abdominal pain, unspecified (principal)
CPT/HCPCS: 74178; Q9967

== ENCOUNTER 2019-11-12 10:59 | Day surgery (SDC) | payer OTHER ==
[2019-11-10 15:18] VITALS: BMI 22.5
[~2019-11-12 10:59] MED LIST: LACTATED RINGERS 1,000 ML IV SCH; LIDOCAINE 1% 20 ML VIAL (10MG/ML) FOR IV START INTRADERMA PRN
[2019-11-12 11:31] VITALS: TEMP 98
[2019-11-12] MEDS ORDERED: PROPOFOL 10 MG/ML 20 ML VIAL IV ONE (12:04)
--- NOTE | 2019-11-12 12:16 | P.PCN ---
Date of Procedure: 11/12/19 Procedure(s) Performed: BRIEF HISTORY: Patient is a 38-year-old pleasant white male scheduled for an elective colonoscopy as a part of value should lower abdominal pain and change in bowel habits for the last 1 year duration. PROCEDURE PERFORMED: Colonoscopy. PREOPERATIVE DIAGNOSIS: lower abdominal pain and change in bowel habits of 1 year duration. IV sedation per Anesthesia. PROCEDURE: After informed consent was obtained, the patient, was brought into the endoscopy unit. IV sedation was administered by Anesthesia under continuous monitoring. Digital rectal examination was normal. Initially the Olympus CF-160 flexible video colonoscope was then inserted in the rectum, gradually advanced into the cecum without any difficulty. Careful examination was performed as the scope was gradually being withdrawn. Ileocecal valve and the appendiceal orifice were visualized and appeared normal. Prep was excellent. Mucosa of the cecum, ascending colon, transverse colon, descending colon, sigmoid colon, and rectum appeared normal. Retroflexion was performed in the rectum and no lesions were seen. The patient tolerated the procedure well. IMPRESSION: Normal-appearing colon from rectum to cecum with no evidence of colorectal neoplasia. RECOMMENDATIONS: Findings of this examination were discussed with the patient as well as a family. She was advised to be on a high-fiber diet and take fiber supplements a regular basis. He can have a repeat screening colonoscopy in 10 years.
[2019-11-12 13:02] VITALS: BP 125/74; PULSE 85; RESP 16
== END 2019-11-12 13:05 | disposition home or self-care (01) ==
LOC: ORWHC2ENDO 10:59
PROVIDERS: ATTEND Internal Medicine Gastroenterology
DX: R10.30 Lower abdominal pain, unspecified (principal); R19.4 Change in bowel habit; F41.9 Anxiety disorder, unspecified; F32.9 Major depressive disorder, single episode, unspecified; F43.10 Post-traumatic stress disorder, unspecified; K08.89 Other specified disorders of teeth and supporting structures; K21.9 Gastro-esophageal reflux disease without esophagitis; F17.210 Nicotine dependence, cigarettes, uncomplicated; Z79.899 Other long term (current) drug therapy; Z91.09 Other allergy status, other than to drugs and biological substances; Z88.0 Allergy status to penicillin
CPT/HCPCS: 45378; J2704

== ENCOUNTER 2021-06-03 07:15 | Emergency (ER) | payer OTHER ==
[2021-06-03 07:25] VITALS: BP 137/94; PULSE 85; RESP 16; TEMP 97.8
[2021-06-03] MEDS ORDERED: FAMOTIDINE 20 MG TAB PO STA (07:34)
[2021-06-03] MEDS ORDERED: KETOROLAC 15 MG/ML 1 ML VIAL IM STA (07:34)
[2021-06-03] MEDS ORDERED: predniSONE 50 MG TAB PO STA (07:34)
--- NOTE | 2021-06-03 07:36 | ED ---
General Adult HPI - General Chief complaint: Eye Problems Stated complaint: Bee Sting yesterday, Eye Swelling Time Seen by Provider: 06/03/21 07:26 Source: patient Mode of arrival: ambulatory Limitations: no limitations - History of Present Illness Initial comments: 40 year-old male patient presents to the emergency department for evaluation of left eye swelling and palmar itching. Patient states that he was stung in the face by a bee yesterday. States when he woke this morning his left eye was swollen shut and he had intense itching the palms of both hands. He denies any lip, tongue, or throat swelling. Denies difficulty swallowing. Denies any blurred or double vision when eye is held open. Denies abdominal pain. States that this was the first time he has been stung by a bee. Denies taking any medication for his symptoms. Denies any other concerns today. - Related Data Home Medications Medication Instructions Recorded Confirmed Multivitamins, Thera [Multivitamin 1 tab PO DAILY 06/23/17 11/10/19 (formulary)] Pantoprazole [Protonix] 40 mg PO BID 06/23/17 11/10/19 Escitalopram [Lexapro] 20 mg PO DAILY 09/09/18 11/10/19 Ferrous Sulfate [Feosol] 325 mg PO DAILY 11/10/19 11/10/19 L.acidoph,Paracasei, B.lactis 1 each PO DAILY 11/10/19 11/10/19 [Probiotic] Magnesium Oxide [Mag-Ox] 250 mg PO DAILY 11/10/19 11/10/19 QUEtiapine [SEROquel] 200 mg PO HS 11/10/19 11/12/19 Previous Rx's Medication Instructions Recorded Famotidine [Pepcid] 20 mg PO DAILY #5 tablet 06/03/21 Ibuprofen [Motrin] 600 mg PO Q8HR PRN #30 tab 06/03/21 predniSONE 50 mg PO DAILY #5 tablet 06/03/21 Allergies Allergy/AdvReac Type Severity Reaction Status Date / Time nickel Allergy Rash/Hives Verified 06/03/21 07:22 Penicillins Allergy Unknown Verified 06/03/21 07:22 Review of Systems ROS Statement: Those systems with pertinent positive or pertinent negative responses have been documented in the HPI. ROS Other: All systems not noted in ROS Statement are negative. Past Medical History Past Medical History: No Reported History History of Any Multi-Drug Resistant Organisms: None Reported Past Surgical History: Appendectomy, Orthopedic Surgery Additional Past Surgical History / Comment(s): right knee Past Anesthesia/Blood Transfusion Reactions: No Reported Reaction Past Psychological History: Anxiety, Depression, PTSD Smoking Status: Current every day smoker Past Alcohol Use History: Occasional Past Drug Use History: None Reported - Past Family History Father Family Medical History: Liver Disease General Exam Limitations: no limitations General appearance: alert, in no apparent distress, other (Physical well- developed, well-nourished adult male patient in no acute distress. Vital signs upon presentation temperature 97.8F, pulse 85, respirations 16, blood pressure 137/94, pulse ox 99% on room air.) Eye exam: Present: PERRL, EOMI, periorbital swelling (left), other (Left upper and lower lid edema. No overlying erythema. No globe changes. ). Absent: scleral icterus, conjunctival injection ENT exam: Present: normal exam, normal oropharynx, mucous membranes moist Cardiovascular Exam: Present: regular rate, normal rhythm, normal heart sounds. Absent: systolic murmur, diastolic murmur, rubs, gallop, clicks GI/Abdominal exam: Present: soft, normal bowel sounds. Absent: distended, tenderness, guarding, rebound, rigid Neurological exam: Present: alert, oriented X3, CN II-XII intact Psychiatric exam: Present: normal affect, normal mood Skin exam: Present: warm, dry, intact, normal color. Absent: rash Course Vital Signs 06/03/21 07:22 Temperature 97.8 F Pulse Rate 85 Respiratory 16 Rate Blood Pressure 137/94 O2 Sat by Pulse 99 Oximetry Medical Decision Making - Medical Decision Making 40-year-old male patient presents to the emergency department today for evaluation of left periorbital edema and palmar itching after being stung by a bee yesterday. Physical examination did reveal left upper and lower lid swelling. No overlying erythema. No evidence of globe changes. Reports normal vision. He is having no lip, tongue, or throat swelling. Is able to swallow and tolerate secretions. He is given doses of prednisone and Pepcid here. Given Toradol for pain. Is instructed to take Benadryl every 6 hours as needed. As this was his first bee sting he is advised the next sting could be worse. He is instructed to follow-up with his primary care physician for recheck in 1-2 days. Return parameters were discussed in detail. He verbalizes understanding and agrees with this. Case discussed with my attending Dr. Chance. Disposition Clinical Impression: Bee sting, Periorbital swelling Disposition: HOME SELF-CARE Condition: Good Instructions (If sedation given, give patient instructions): Insect Bite or Sting (ED), General Allergic Reaction (ED) Additional Instructions: Take medications as directed. Take iburofen as needed for pain. Apply cool compresses to the left eye. Follow up through primary care physician for r echeck in 1-2 days. Return for any new, worsening, or concerning symptoms. Prescriptions: Ibuprofen [Motrin] 600 mg PO Q8HR PRN #30 tab PRN Reason: Pain Famotidine [Pepcid] 20 mg PO DAILY #5 tablet predniSONE 50 mg PO DAILY #5 tablet Is patient prescribed a controlled substance at d/c from ED?: No Referrals: [facility],Clinic [Primary Care Provider] - 1-2 days Time of Disposition: 07:36
== END 2021-06-03 07:47 | disposition home or self-care (01) ==
LOC: EC 07:15
DX: T63.441A Toxic effect of venom of bees, accidental (unintentional), initial encounter (principal); H57.89 Other specified disorders of eye and adnexa; F32.9 Major depressive disorder, single episode, unspecified; F41.9 Anxiety disorder, unspecified; F17.200 Nicotine dependence, unspecified, uncomplicated; Z88.0 Allergy status to penicillin
CPT/HCPCS: 99282; 96372; J1885; J7512

== ENCOUNTER 2021-10-30 13:29 | Emergency (ER) | payer OTHER ==
[2021-10-30 13:41] VITALS: BP 156/94; PULSE 85; RESP 20; TEMP 98.4
[2021-10-30] MEDS ORDERED: LIDOCAINE 1% INJ 10MG/ML (20 ML MDV) SQ ONE (14:10)
[2021-10-30] MEDS ORDERED: MORPHINE SULFATE 4 MG/ML SYRINGE IM STA (14:11)
--- NOTE | 2021-10-30 14:21 | ED ---
General Adult HPI - General Chief complaint: Wound/Laceration Stated complaint: Hand injury/lac/[facility] Time Seen by Provider: 10/30/21 14:04 Source: patient, RN notes reviewed Mode of arrival: ambulatory Limitations: no limitations - History of Present Illness Initial comments: 40-year-old male presents to the emergency room for left hand injury. Patient got his hand stuck between a high low and a 500 pound battery. States his second and third digits are painful. Tetanus is up-to-date in the past 5 years. Patient has no other complaints at this time including shortness of breath, chest pain, abdominal pain, nausea or vomiting, headache, or visual changes. - Related Data Home Medications Medication Instructions Recorded Confirmed Multivitamins, Thera [Multivitamin 1 tab PO DAILY 06/23/17 11/10/19 (formulary)] Pantoprazole [Protonix] 40 mg PO BID 06/23/17 11/10/19 Escitalopram [Lexapro] 20 mg PO DAILY 09/09/18 11/10/19 Ferrous Sulfate [Feosol] 325 mg PO DAILY 11/10/19 11/10/19 L.acidoph,Paracasei, B.lactis 1 each PO DAILY 11/10/19 11/10/19 [Probiotic] Magnesium Oxide [Mag-Ox] 250 mg PO DAILY 11/10/19 11/10/19 QUEtiapine [SEROquel] 200 mg PO HS 11/10/19 11/12/19 Previous Rx's Medication Instructions Recorded Famotidine [Pepcid] 20 mg PO DAILY #5 tablet 06/03/21 Famotidine [Pepcid] 20 mg PO DAILY #5 tablet 06/03/21 Ibuprofen [Motrin] 600 mg PO Q8HR PRN #30 tab 06/03/21 Ibuprofen [Motrin] 600 mg PO Q8HR PRN #30 tab 06/03/21 predniSONE 50 mg PO DAILY #5 tablet 06/03/21 predniSONE 50 mg PO DAILY #5 tablet 06/03/21 Cephalexin [Keflex] 500 mg PO Q6HR 7 Days #28 cap 10/30/21 Allergies Allergy/AdvReac Type Severity Reaction Status Date / Time nickel Allergy Rash/Hives Verified 10/30/21 13:38 Penicillins Allergy Unknown Verified 10/30/21 13:38 Review of Systems ROS Statement: Those systems with pertinent positive or pertinent negative responses have been documented in the HPI. ROS Other: All systems not noted in ROS Statement are negative. Past Medical History Past Medical History: No Reported History History of Any Multi-Drug Resistant Organisms: None Reported Past Surgical History: Appendectomy, Orthopedic Surgery Additional Past Surgical History / Comment(s): right knee Past Anesthesia/Blood Transfusion Reactions: No Reported Reaction Past Psychological History: Anxiety, Depression, PTSD Smoking Status: Current every day smoker Past Alcohol Use History: Occasional Past Drug Use History: None Reported - Past Family History Father Family Medical History: Liver Disease General Exam Limitations: no limitations General appearance: alert, in no apparent distress Head exam: Present: atraumatic Eye exam: Present: normal appearance, PERRL, EOMI. Absent: scleral icterus, conjunctival injection ENT exam: Present: normal exam, mucous membranes moist Neck exam: Present: normal inspection, full ROM. Absent: tenderness Respiratory exam: Present: normal lung sounds bilaterally. Absent: respiratory distress, wheezes Cardiovascular Exam: Present: regular rate, normal rhythm, normal heart sounds Extremities exam: Present: other (Small lacerations on the figure pads of the left second and left third digits. Capillary refill less than 2 seconds. 2nd digit has large subungual hematoma) Course Vital Signs 10/30/21 13:38 Temperature 98.4 F Pulse Rate 85 Respiratory 20 Rate Blood Pressure 156/94 O2 Sat by Pulse 97 Oximetry Procedures - Procedures Initial comment: trephination: 2nd digit subungual hematoma: cautery pen was utilized to produce small home in the nail. blood expelled - Laceration Laceration #1 Consent Obtained: verbal consent Indication: laceration Site: hand (2nd digit) Size (cm): 1 Description: linear Depth: simple, single layer Anesthetic Used: lidocaine 1% Anesthesia Technique: nerve block Amount (mls): 2 Pre-repair: wound explored, irrigated extensively, deep structures intact Type of Sutures: nylon Size of Sutures: 5-0 Number of Sutures: 2 Technique: simple, interrupted Patient Tolerated Procedure: well, no complications Laceration #2 Consent Obtained: verbal consent Indication: laceration Site: hand (3rd digit) Size (cm): 3 Description: linear Depth: simple, single layer Anesthetic Used: lidocaine 1% Anesthesia Technique: local infiltration, nerve block Amount (mls): 4 Pre-repair: wound explored, irrigated extensively Type of Sutures: nylon Size of Sutures: 5-0 Number of Sutures: 4 Technique: simple, interrupted Patient Tolerated Procedure: well, no complications Medical Decision Making - Medical Decision Making Vitals are stable. Patient did have 2 lacerations of the second and third digits. These were irrigated thoroughly. X-ray revealed no acute fracture or dislocation. Wounds are repaired. Subungual hematoma on the left second digit was trephinated. Patient started on antibiotics. Patient will be discharged home with follow-up with primary care. Will return here for any worsening symptoms. Disposition Clinical Impression: Laceration, Subungual hematoma Disposition: HOME SELF-CARE Condition: Good Instructions (If sedation given, give patient instructions): Laceration (ED), Care For Your Stitches (ED) Additional Instructions: Take motrin for pain. If pain is severe take Tylenol [address] operate machinery while taking this. Please keep the wounds clean with gentle soap and water. Apply antibiotic ointment daily and monitor for signs of infection. Take antibiotic as well. Return in 10 days for suture removal. Return to the emergency room for any worsening symptoms. Prescriptions: Cephalexin [Keflex] 500 mg PO Q6HR 7 Days #28 cap Is patient prescribed a controlled substance at d/c from ED?: No Referrals: [facility],Clinic [Primary Care Provider] - 1-2 days Time of Disposition: 15:17
--- NOTE | 2021-10-30 14:49 | XR ---
EXAMINATION TYPE: XR hand complete LT DATE OF EXAM: 10/30/2021 CLINICAL HISTORY: pain TECHNIQUE: Frontal, lateral and oblique images of the left hand are obtained. COMPARISON: None. FINDINGS: There is no acute fracture/dislocation evident. The joint spaces appear within normal limi ts. The overlying soft tissue appears unremarkable. IMPRESSION: There is no acute fracture or dislocation. ICD 10 NO FRACTURE, INITIAL EVALUATION
[2021-10-30] MEDS ORDERED: BACITRACIN OINT 1 EACH PACKET TOPICAL STA (15:17)
[2021-10-30] MEDS ORDERED: CEPHALEXIN 500MG STARTER PACK 4 CAP BTL PO STA (15:20)
[2021-10-30] MEDS ORDERED: ACET/COD 300 MG/30 MG STARTER PACK 6 TAB BTL PO STA (15:21)
== END 2021-10-30 15:55 | disposition home or self-care (01) ==
LOC: EC 13:29
DX: S61.211A Laceration without foreign body of left index finger without damage to nail, initial encounter (principal); S61.213A Laceration without foreign body of left middle finger without damage to nail, initial encounter; S60.10XA Contusion of unspecified finger with damage to nail, initial encounter; F41.9 Anxiety disorder, unspecified; F32.A Depression, unspecified; F43.10 Post-traumatic stress disorder, unspecified; F17.200 Nicotine dependence, unspecified, uncomplicated; Z72.89 Other problems related to lifestyle
CPT/HCPCS: 73130; 99283; 96372; 12042; J2270; J2001

== ENCOUNTER → 2021-11-07 | Outpatient (CLI) | payer OTHER ==
--- NOTE | 2021-11-07 16:06 | XR ---
EXAMINATION TYPE: XR hand complete LT DATE OF EXAM: 11/07/2021 COMPARISON: 10/30/2021 HISTORY: Pain TECHNIQUE: Three views are submitted. FINDINGS: The osseous structures are intact. The joint spaces are preserved and there is no acute fracture or dislocation. IMPRESSION: 1. No definite acute fracture or dislocation if symptoms persist, follow-up study in 7 to 10 days wo uld be suggested
== END | disposition home or self-care (01) ==
LOC: RADXRMAIN 15:37
PROVIDERS: ATTEND Emergency Medicine
DX: M79.642 Pain in left hand (principal)

== ENCOUNTER 2024-11-13 09:26 | Emergency (ER) | payer OTHER ==
--- NOTE | 2024-11-13 10:40 | ED ---
General Adult HPI - General Chief complaint: Urogenital Stated complaint: hot cold sweats/badder/abd pain/vomitting Time Seen by Provider: 11/13/24 09:45 Source: patient, RN notes reviewed Mode of arrival: ambulatory Limitations: no limitations - History of Present Illness Initial comments: 43-year-old male presents emergency department chief complaint of flank pain, and dysuria. Patient states he had follow-up order from his urine he states that he has had hot and cold chills sweats in his bed. Patient states he just generally does not feel well denies any URI symptoms. Patient denies any chest pain or shortness of breath denies known fever. Patient denies any lower leg pains, swelling. - Related Data Home Medications Medication Instructions Recorded Confirmed Multivitamins, Thera [Multivitamin 1 tab PO DAILY 06/23/17 11/10/19 (formulary)] Pantoprazole [Protonix] 40 mg PO BID 06/23/17 11/10/19 Escitalopram [Lexapro] 20 mg PO DAILY 09/09/18 11/10/19 Ferrous Sulfate [Feosol] 325 mg PO DAILY 11/10/19 11/10/19 L.acidoph,Paracasei, B.lactis 1 each PO DAILY 11/10/19 11/10/19 [Probiotic] Magnesium Oxide [Mag-Ox] 250 mg PO DAILY 11/10/19 11/10/19 QUEtiapine [SEROquel] 200 mg PO HS 11/10/19 11/12/19 Previous Rx's Medication Instructions Recorded Famotidine [Pepcid] 20 mg PO DAILY #5 tablet 06/03/21 Famotidine [Pepcid] 20 mg PO DAILY #5 tablet 06/03/21 Ibuprofen [Motrin] 600 mg PO Q8HR PRN #30 tab 06/03/21 Ibuprofen [Motrin] 600 mg PO Q8HR PRN #30 tab 06/03/21 predniSONE 50 mg PO DAILY #5 tablet 06/03/21 predniSONE 50 mg PO DAILY #5 tablet 06/03/21 Cephalexin [Keflex] 500 mg PO Q6HR 7 Days #28 cap 10/30/21 Ciprofloxacin HCl [Cipro] 500 mg PO Q12HR #20 tablet 11/13/24 Allergies Allergy/AdvReac Type Severity Reaction Status Date / Time nickel Allergy Rash/Hives Verified 11/13/24 09:28 Penicillins Allergy Unknown Verified 11/13/24 09:28 Review of Systems ROS Statement: Those systems with pertinent positive or pertinent negative responses have been documented in the HPI. ROS Other: All systems not noted in ROS Statement are negative. Past Medical History Past Medical History: No Reported History History of Any Multi-Drug Resistant Organisms: None Reported Past Surgical History: Appendectomy, Orthopedic Surgery Additional Past Surgical History / Comment(s): right knee Past Anesthesia/Blood Transfusion Reactions: No Reported Reaction Past Psychological History: Anxiety, Depression, PTSD Smoking Status: Current every day smoker Past Alcohol Use History: Occasional Past Drug Use History: None Reported - Past Family History Father Family Medical History: Liver Disease General Exam Limitations: no limitations General appearance: alert, in no apparent distress Head exam: Present: atraumatic, normocephalic, normal inspection Eye exam: Present: normal appearance, PERRL, EOMI. Absent: scleral icterus, conjunctival injection, periorbital swelling ENT exam: Present: normal exam, mucous membranes moist Neck exam: Present: normal inspection, full ROM. Absent: tenderness, meningismus, lymphadenopathy Respiratory exam: Present: normal lung sounds bilaterally. Absent: respiratory distress, wheezes, rales, rhonchi, stridor Cardiovascular Exam: Present: regular rate, normal rhythm, normal heart sounds. Absent: systolic murmur, diastolic murmur, rubs, gallop, clicks GI/Abdominal exam: Present: soft, normal bowel sounds. Absent: distended, tenderness, guarding, rebound, rigid Back exam: Present: CVA tenderness (R). Absent: CVA tenderness (L) Neurological exam: Present: alert Skin exam: Present: warm, dry, intact, normal color. Absent: rash Course Vital Signs 11/13/24 09:28 Temperature 98.1 F Pulse Rate 82 Respiratory 20 Rate Blood Pressure 144/74 O2 Sat by Pulse 94 L Oximetry Medical Decision Making - Medical Decision Making Was pt. sent in by a medical professional or institution (, PA, SALES CONSULTING DIRECTOR, urgent care, hospital, or usp...) When possible be specific @ -No Did you speak to anyone other than the patient for history (EMS, parent, family, police, friend...)? What history was obtained from this source @ -No Did you review nursing and triage notes (agree or disagree)? Why? @ -I reviewed and agree with nursing and triage notes Were old charts reviewed (outside hosp., previous admission, EMS record, old EKG, old radiological studies, urgent care reports/EKG's, usp records)? Report findings @ -No old charts were reviewed Differential Diagnosis (chest pain, altered mental status, abdominal pain women, abdominal pain men, vaginal bleeding, weakness, fever, dyspnea, syncope, headache, dizziness, GI bleed, back pain, seizure, CVA, palpatations, mental health, musculoskeletal)? @ -Differential Abdominal Pain Men: Appendicitis, cholecystitis, diverticulosis, ischemic bowel, pancreatitis, hepatitis, UTI, gastroenteritis, AAA, incarcerated hernia, bowel obstruction, constipation, inflammatory bowel, hepatitis, peptic ulcer disease, splenic infarction, perforated viscus, testicular torsion, this is not meant to be an all-inclusive list EKG interpreted by me (3pts min.). @ -none X-rays interpreted by me (1pt min.). @ -None done CT interpreted by me (1pt min.). @ -CT abdomen pelvis without contrast negative for acute intra-abdominal process no abscess U/S interpreted by me (1pt. min.). @ -None done What testing was considered but not performed or refused? (CT, X-rays, U/S, labs)? Why? @ -None What meds were considered but not given or refused? Why? @ -None Did you discuss the management of the patient with other professionals (professionals i.e. , PA, SALES CONSULTING DIRECTOR, lab, RT, psych nurse, social service worker, core dipper, teacher, command center officer, case management associate)? Give summary @ -No Was smoking cessation discussed for >3mins.? @ -No Was critical care preformed (if so, how long)? @ -No Were there social determinants of health that impacted care today? How? (Homelessness, low income, unemployed, alcoholism, drug addiction, transportation, low edu. Level, literacy, decrease access to med. care, longterm, rehab)? @ -No Was there de-escalation of care discussed even if they declined (Discuss DNR or withdrawal of care, Hospice)? DNR status @ -No What co-morbidities impacted this encounter? (DM, HTN, Smoking, COPD, CAD, Cancer, CVA, ARF, Chemo, Hep., AIDS, mental health diagnosis, sleep apnea, morbid obesity)? @ -None Was patient admitted / discharged? Hospital course, mention meds given and route, prescriptions, significant lab abnormalities, going to OR and other pertinent info. @ -[Discharge patient has evidence of UTI CT was negative. Patient is discharged in stable condition after Rocephin will be discharged on ciprofloxacin return parameters perla. Undiagnosed new problem with uncertain prognosis? @ -No Drug Therapy requiring intensive monitoring for toxicity (Heparin, Nitro, Insulin, Cardizem)? @ -No Were any procedures done? @ -No Diagnosis/symptom? @ -UTI Acute, or Chronic, or Acute on Chronic? @ -Acute Uncomplicated (without systemic symptoms) or Complicated (systemic symptoms)? @ -Uncomplicated Side effects of treatment? @ -No Exacerbation, Progression, or Severe Exacerbation? @ -No Poses a threat to life or bodily function? How? (Chest pain, USA, DC, pneumonia, PE, COPD, DKA, ARF, appy, cholecystitis, CVA, Diverticulitis, Homicidal, Suicidal, threat to staff... and all critical care pts) @ -No - Lab Data Result diagrams: 11/13/24 10:36 11/13/24 10:36 Lab Results 11/13/24 11/13/24 11/13/24 Range/Units 10:20 10:36 10:36 WBC 16.5 H (3.8-10.6) k/uL RBC 4.61 (4.30-5.90) m/uL Hgb 14.9 (13.0-17.5) gm/dL Hct 43.5 (39.0-53.0) % MCV 94.3 (80.0-100.0) fL MCH 32.4 (25.0-35.0) pg MCHC 34.4 (31.0-37.0) g/dL RDW 11.9 (11.5-15.5) % Plt Count 220 (150-450) k/uL MPV 8.0 Neutrophils % 88 % Lymphocytes % 6 % Monocytes % 3 % Eosinophils % 3 % Basophils % 0 % Neutrophils # 14.5 H (1.3-7.7) k/uL Lymphocytes # 0.9 L (1.0-4.8) k/uL Monocytes # 0.5 (0-1.0) k/uL Eosinophils # 0.5 (0-0.7) k/uL Basophils # 0.0 (0-0.2) k/uL Sodium 131 L (137-145) mmol/L Potassium 4.2 (3.5-5.1) mmol/L Chloride 100 (98-107) mmol/L Carbon Dioxide 21 L (22-30) mmol/L Anion Gap 10 mmol/L BUN 16 (9-20) mg/dL Creatinine 1.08 (0.66-1.25) mg/dL Est GFR (CKD-EPI)AfAm >90 (>60 ml/min/1.73 sqM) Est GFR (CKD-EPI)NonAf 83 (>60 ml/min/1.73 sqM) Glucose 98 (74-99) mg/dL Plasma Lactic Acid Riky (0.7-2.0) mmol/L Calcium 9.5 (8.4-10.2) mg/dL Total Bilirubin 0.9 (0.2-1.3) mg/dL AST 29 (17-59) U/L ALT 16 (4-49) U/L Alkaline Phosphatase 108 (38-126) U/L Total Protein 7.3 (6.3-8.2) g/dL Albumin 4.5 (3.5-5.0) g/dL Lipase 39 (23-300) U/L Urine Color Yellow Urine Appearance Turbid (Clear) Urine pH 6.5 (5.0-8.0) Ur Specific [place] 1.026 (1.001-1.035) Urine Protein 1+ H (Negative) Urine Glucose (UA) Negative (Negative) Urine Ketones 2+ H (Negative) Urine Blood Negative (Negative) Urine Nitrite Negative (Negative) Urine Bilirubin 1+ H (Negative) Urine Urobilinogen 2.0 (<2.0) mg/dL Ur Leukocyte Esterase Moderate H (Negative) Urine RBC 12 H (0-5) /hpf Urine WBC 59 H (0-5) /hpf Ur Squamous Epith Cells <1 (0-4) /hpf Hyaline Casts 37 H (0-2) /lpf Urine Mucus Rare H (None) /hpf 12/20/24 Range/Units 10:36 WBC (3.8-10.6) k/uL RBC (4.30-5.90) m/uL Hgb (13.0-17.5) gm/dL Hct (39.0-53.0) % MCV (80.0-100.0) fL MCH (25.0-35.0) pg MCHC (31.0-37.0) g/dL RDW (11.5-15.5) % Plt Count (150-450) k/uL MPV Neutrophils % % Lymphocytes % % Monocytes % % Eosinophils % % Basophils % % Neutrophils # (1.3-7.7) k/uL Lymphocytes # (1.0-4.8) k/uL Monocytes # (0-1.0) k/uL Eosinophils # (0-0.7) k/uL Basophils # (0-0.2) k/uL Sodium (137-145) mmol/L Potassium (3.5-5.1) mmol/L Chloride (98-107) mmol/L Carbon Dioxide (22-30) mmol/L Anion Gap mmol/L BUN (9-20) mg/dL Creatinine (0.66-1.25) mg/dL Est GFR (CKD-EPI)AfAm (>60 ml/min/1.73 sqM) Est GFR (CKD-EPI)NonAf (>60 ml/min/1.73 sqM) Glucose (74-99) mg/dL Plasma Lactic Acid Riky 0.9 (0.7-2.0) mmol/L Calcium (8.4-10.2) mg/dL Total Bilirubin (0.2-1.3) mg/dL AST (17-59) U/L ALT (4-49) U/L Alkaline Phosphatase (38-126) U/L Total Protein (6.3-8.2) g/dL Albumin (3.5-5.0) g/dL Lipase (23-300) U/L Urine Color Urine Appearance (Clear) Urine pH (5.0-8.0) Ur Specific [place] (1.001-1.035) Urine Protein (Negative) Urine Glucose (UA) (Negative) Urine Ketones (Negative) Urine Blood (Negative) Urine Nitrite (Negative) Urine Bilirubin (Negative) Urine Urobilinogen (<2.0) mg/dL Ur Leukocyte Esterase (Negative) Urine RBC (0-5) /hpf Urine WBC (0-5) /hpf Ur Squamous Epith Cells (0-4) /hpf Hyaline Casts (0-2) /lpf Urine Mucus (None) /hpf Disposition Clinical Impression: UTI (urinary tract infection) Disposition: HOME SELF-CARE Condition: Stable Instructions (If sedation given, give patient instructions): Urinary Tract Infection in Men (ED) Additional Instructions: Please return to the Emergency Department if symptoms worsen or any other concerns. Prescriptions: Ciprofloxacin HCl [Cipro] 500 mg PO Q12HR #20 tablet Is patient prescribed a controlled substance at d/c from ED?: No Referrals: [facility],Clinic [Primary Care Provider] - 1-2 days Time of Disposition: 11:36
[2024-11-13] MEDS: SODIUM CHLORIDE 0.9% 1,000 ML IV STA (10:41)
[2024-11-13 11:02] LABS: Basophils % (A) 0 %; Eosinophils # (A) 0.5 k/uL (0-0.7); Eosinophils % (A) 3 %; HCT 43.5 % (39.0-53.0); HGB 14.9 gm/dL (13.0-17.5); Lymphocytes # (A) 0.9 k/uL (1.0-4.8); Lymphocytes % (A) 6 %; MCH 32.4 pg (25.0-35.0); MCHC 34.4 g/dL (31.0-37.0); MCV 94.3 fL (80.0-100.0); Monocytes # (A) 0.5 k/uL (0-1.0); Monocytes % (A) 3 %; Neutrophils # (A) 14.5 k/uL (1.3-7.7); Neutrophils % (A) 88 %; Platelet Count 220 k/uL (150-450); RBC 4.61 m/uL (4.30-5.90); RDW 11.9 % (11.5-15.5); WBC 16.5 k/uL (3.8-10.6)
[2024-11-13 11:24] LABS: Appearance,Urine Turbid (Clear); Bilirubin,Urine 1+ (Negative); Blood,Urine Negative (Negative); Color,Urine Yellow; Glucose,Urine (UA) Negative (Negative); Hyaline Casts,Urine 37 /lpf (0-2); Ketones,Urine 2+ (Negative); Leukocyte Esterase,Urine Moderate (Negative); Mucus,Urine Rare /hpf; Nitrite,Urine Negative (Negative); PH, Urine 6.5 (5.0-8.0); Protein,Urine 1+ (Negative); RBC,Urine 12 /hpf (0-5); Specific Gravity,Urine 1.026 (1.001-1.035); Squamous Epithelial Cell,Urine <1 /hpf (0-4); WBC,Urine 59 /hpf (0-5)
[2024-11-13 11:25] LABS: ALT 16 U/L (4-49); AST 29 U/L (17-59); African American GFR (CKD) >90 (>60 ml/min/1.73 sqM); Albumin 4.5 g/dL (3.5-5.0); Alkaline Phosphatase 108 U/L (38-126); Anion Gap 10 mmol/L; Blood Urea Nitrogen 16 mg/dL (9-20); Calcium 9.5 mg/dL (8.4-10.2); Carbon Dioxide 21 mmol/L (22-30); Chloride 100 mmol/L (98-107); Glucose 98 mg/dL (74-99); Lipase 39 U/L (23-300); Non-African American GFR(CKD) 83 (>60 ml/min/1.73 sqM); Potassium 4.2 mmol/L (3.5-5.1); Sodium 131 mmol/L (137-145); Total Bilirubin 0.9 mg/dL (0.2-1.3); Total Protein 7.3 g/dL (6.3-8.2)
--- NOTE | 2024-11-13 11:28 | CT ---
EXAMINATION TYPE: CT abdomen pelvis wo con CT DLP: 490.4 mGycm, Automated exposure control for dose reduction was used. DATE OF EXAM: 11/13/2024 11:00 AM COMPARISON: CT abdomen pelvis 11/05/2019, 09/09/2018. CLINICAL INDICATION:Male, 43 years old with history of flank pain; Right flank pain, right groin pain TECHNIQUE: Standard CT of the abdomen and pelvis without IV or oral contrast. Lack of IV or oral co ntrast limits evaluation of solid and hollow organ viscera. Coronal and sagittal reformats were perfo rmed. FINDINGS: LOWER CHEST: Unremarkable ABDOMEN LIVER: Subcentimeter left hepatic lobe hypodense focus which is too small to characterize but likely represents a cyst. GALLBLADDER AND BILE DUCTS: Unremarkable noncontrast appearance. PANCREAS: Unremarkable noncontrast appearance. SPLEEN: Unremarkable noncontrast appearance. ADRENAL GLANDS: Unremarkable noncontrast appearance.. KIDNEYS AND URETERS: No evidence of hydronephrosis or renal calculus. Malrotated right kidney. No ure teral calculus identified. No perinephric fat stranding or fluid collections. PELVIS BLADDER: Underdistended, limiting evaluation. REPRODUCTIVE: Unremarkable. ABDOMEN & PELVIS STOMACH AND BOWEL: Stomach and duodenum are unremarkable. No focal bowel wall thickening or surroundi ng inflammatory changes. The appendix is not identified. No inflammatory changes within the right low er quadrant. No evidence of bowel obstruction. PERITONEUM: No evidence of pneumoperitoneum or free fluid. VASCULATURE: No evidence of aortic aneurysm. MUSCULOSKELETAL: No acute osseous abnormalities LYMPH NODES: No gross evidence for lymphadenopathy. SOFT TISSUE/ABDOMINAL WALL: Unremarkable. No inguinal hernia. IMPRESSION: No CT evidence for acute abdominal/pelvic process within limitations of a noncontrast exam. [facility], , 11/13/2024 11:26 AM
[2024-11-13] MEDS: cefTRIAXone IN SWFI 1,000 MG/10 ML SYRINGE IVP STA (11:54)
[2024-11-13 12:14] VITALS: BP 138/79; PULSE 80; RESP 18; TEMP 98.2
== END 2024-11-13 12:14 | disposition home or self-care (01) ==
LOC: EC 09:26
DX: N39.0 Urinary tract infection, site not specified (principal); F17.200 Nicotine dependence, unspecified, uncomplicated; Z88.0 Allergy status to penicillin; Z88.8 Allergy status to other drugs, medicaments and biological substances
CPT/HCPCS: 36415; 80053; 83605; 83690; 85025; 81001; 74176; 99284; 96374; 96361; J0696